=== PATIENT | male | born 1955 | race Caucasian/White ===

== ENCOUNTER → 2022-02-04 | Outpatient (CLI) | payer MEDICARE, SELFPAY ==
[2022-02-04 10:06] LABS: Absolute Lymphocyte Count 1.53 X10^3/uL (0.83-4.51); Absolute Neutrophil Count 3.5 X10^3/uL (2.0-7.7); Basophil# 0.02 X10^3/uL; Basophil% 0.4 % (0-1); Eosinophil# 0.17 X10^3/uL; Hematocrit 45.6 % (40-54); Hemoglobin 15.1 g/dL (13.0-16.5); Lymphocyte # 1.53 X10^3/ul (0.83-4.51); Lymphocyte % 27.4 % (19-41); Mean Corp Hgb Conc 33.1 g/dL (32-36); Mean Corpuscular Hgb 32.1 pg (27.0-32.0); Mean Corpuscular Volume 96.8 fL (80-94); Mean Platelet Vol. 9.9 fl (6.2-12.0); Monocyte# 0.38 X10^3/uL; Monocyte% 6.8 % (0-10); NRBC Flagged by Analyzer 0 % (0-5); Neutrophil # 3.46 X10^3/uL (2.7-7.7); Platelet Count 187 K/mm3 (150-450); RBC Distribution Width CV 12.9 % (11.6-14.6); RBC Distribution Width SD 46.4 fl (35.1-43.9); Red Blood Count 4.71 M/mm3 (4.6-6.2); White Blood Count 5.6 K/mm3 (4.4-11.0)
[2022-02-04 10:34] LABS: Vitamin D,25 Hydroxy 36.7 ng/mL
[2022-02-04 10:58] LABS: ALB/GLOB Ratio 1.3 RATIO (0.9-2.4); AST(SGOT) 20 U/L (15-37); Alanine Aminotransfer ALT/SGPT 41 U/L (16-61); Albumin, Serum 4.1 g/dL (3.2-5.0); Alkaline Phosphatase 63 U/L (45-117); Anion Gap 5 (5-15); BUN 20 mg/dL (7-18); BUN/Creat Ratio 21.5 RATIO (10-20); Calcium,Total 9.4 mg/dL (8.5-10.1); Chloride 104 mmol/L (98-107); Creatinine, Serum 0.93 mg/dL (0.70-1.30); EST Glomerular Filtration Rate 86 mL/min (>60); Est Glom Filt Rate - Afr Amer 104 mL/min (>60); Globulin 3.1 g/dL (2.2-4.2); Glucose 104 mg/dL (74-106); PSA,Total - Annual Screen 0.55 ng/mL (0.00-4.00); Potassium 4.2 mmol/L (3.5-5.1); Protein, Total 7.2 g/dL (6.4-8.2); Sodium Level 138 mmol/L (136-145); T4 Free Direct 0.82 ng/dL (0.76-1.46); Thyroid Stim Hormone (TSH) 2.47 uIU/mL (0.358-3.74)
[2022-02-05 10:15] LABS: Hemoglobin A1c 5.7 % (3.8-5.6)
[2022-02-19 17:24] LABS: Anti-Thyroglobulin AB 10.6 IU/mL (0.0-0.9); Thyroglobulin RIA < 2.0 ng/mL (.)
== END | disposition home or self-care (01) ==
LOC: MFPLAB 09:29
PROVIDERS: PCP Family Medicine; Referring Provider Family Medicine; Visit Provider Family Medicine
DX: E04.1 Nontoxic single thyroid nodule (principal); Z80.42 Family history of malignant neoplasm of prostate; E55.9 Vitamin D deficiency, unspecified; R73.09 Other abnormal glucose; Z12.5 Encounter for screening for malignant neoplasm of prostate
CPT/HCPCS: 36415; 80053; 82306; 83036; 84153; 84432; 84439; 84443; 85025; 86800; G0103

== ENCOUNTER → 2022-02-16 | Outpatient (CLI) | payer MEDICARE, SELFPAY ==
--- NOTE | 2022-02-16 11:45 | US_ITS ---
STUDY: THYROID ULTRASOUND REASON FOR EXAM: Male, 66 years old. NODULE TECHNIQUE: Ultrasound evaluation of the thyroid was performed with real-time and static resendez-scale imaging. COMPARISON: None. FINDINGS: RIGHT LOBE: The right lobe of the thyroid gland measures 3.7 x 1.5 cm. There is a homogeneous echotexture. There are no demonstrated solid, cystic or complex lesions. LEFT LOBE: The left lobe of the thyroid gland measures 3.6 x 1.7 cm. There is a homogeneous echotexture. There is a nodule. This measures 3 x 3 x 2 mm. The lesion is solid with regular margins and terrie nodular doppler flow. ISTHMUS: The isthmus measures 4 mm. US/Thyroid IMPRESSION: Left colloid cyst. This nodule is cystic or nearly completely cystic. This nodule is benign and no FNA or follow-up is necessary. Electronically Signed: Chandrakant Mccloud MD at 16:55 EST ,
== END | disposition home or self-care (01) ==
LOC: US 11:43
PROVIDERS: PCP Family Medicine; Visit Provider Family Medicine
DX: E04.1 Nontoxic single thyroid nodule (principal)
CPT/HCPCS: 76536

== ENCOUNTER → 2022-07-07 | Outpatient (CLI) | payer MEDICARE, SELFPAY ==
[2022-07-07 10:24] LABS: Hemoglobin A1c 5.7 % (3.8-5.6)
[2022-07-07 10:38] LABS: ALB/GLOB Ratio 1.1 RATIO (0.9-2.4); AST(SGOT) 26 U/L (15-37); Alanine Aminotransfer ALT/SGPT 45 U/L (16-61); Albumin, Serum 3.9 g/dL (3.2-5.0); Alkaline Phosphatase 76 U/L (45-117); Anion Gap 7 (5-15); BUN 19 mg/dL (7-18); BUN/Creat Ratio 20.5 RATIO (10-20); Calcium,Total 9.1 mg/dL (8.5-10.1); Chloride 104 mmol/L (98-107); Cholesterol 210 mg/dL (200); Creatinine, Serum 0.93 mg/dL (0.70-1.30); EST Glomerular Filtration Rate 87 mL/min (>60); Est Glom Filt Rate - Afr Amer 105 mL/min (>60); Globulin 3.5 g/dL (2.2-4.2); Glucose 98 mg/dL (74-106); High Density Lipoprotein 45 mg/dL; Potassium 4.3 mmol/L (3.5-5.1); Protein, Total 7.4 g/dL (6.4-8.2); Sodium Level 138 mmol/L (136-145); Triglycerides 115 mg/dL; Very Low Density Lipoprotein 23 mg/dL (5-40)
[2022-07-07 10:57] LABS: Vitamin D,25 Hydroxy 60.8 ng/mL
== END | disposition home or self-care (01) ==
PROVIDERS: PCP Family Medicine; Referring Provider Family Medicine; Visit Provider Family Medicine
DX: E55.9 Vitamin D deficiency, unspecified (principal); E78.5 Hyperlipidemia, unspecified; R73.02 Impaired glucose tolerance (oral)
CPT/HCPCS: 36415; 80053; 80061; 82306; 83036

== ENCOUNTER → 2022-10-29 | Outpatient (CLI) | payer MEDICARE, SELFPAY ==
[2022-10-29 12:03] LABS: Absolute Lymphocyte Count 1.29 X10^3/uL (0.83-4.51); Absolute Neutrophil Count 3.5 X10^3/uL (2.0-7.7); Basophil# 0.01 X10^3/uL; Basophil% 0.2 % (0-1); Eosinophil# 0.12 X10^3/uL; Eosinophils% 2.3 % (0-5); Hemoglobin 14.5 g/dL (13.0-16.5); Lymphocyte # 1.29 X10^3/ul (0.83-4.51); Lymphocyte % 24.8 % (19-41); Mean Corpuscular Hgb 31.9 pg (27.0-32.0); Mean Corpuscular Volume 96.7 fL (80-94); Mean Platelet Vol. 9.8 fl (6.2-12.0); Monocyte# 0.33 X10^3/uL; Monocyte% 6.3 % (0-10); NRBC Flagged by Analyzer 0 % (0-5); Neutrophil # 3.45 X10^3/uL (2.7-7.7); Neutrophil % 66.2 % (47-70); Platelet Count 194 K/mm3 (150-450); RBC Distribution Width SD 46.6 fl (35.1-43.9); Red Blood Count 4.55 M/mm3 (4.6-6.2); White Blood Count 5.2 K/mm3 (4.4-11.0)
[2022-10-29 12:31] LABS: ALB/GLOB Ratio 1.1 RATIO (0.9-2.4); AST(SGOT) 21 U/L (15-37); Alanine Aminotransfer ALT/SGPT 36 U/L (16-61); Albumin, Serum 3.9 g/dL (3.2-5.0); Alkaline Phosphatase 66 U/L (45-117); Anion Gap 5 (5-15); BUN 16 mg/dL (7-18); BUN/Creat Ratio 15.7 RATIO (10-20); Calcium,Total 9.4 mg/dL (8.5-10.1); Chloride 105 mmol/L (98-107); Cholesterol 137 mg/dL (200); Creatinine, Serum 1.02 mg/dL (0.70-1.30); EST Glomerular Filtration Rate 78 mL/min (>60); Est Glom Filt Rate - Afr Amer 94 mL/min (>60); Globulin 3.5 g/dL (2.2-4.2); Glucose 101 mg/dL (74-106); High Density Lipoprotein 51 mg/dL; Potassium 4.3 mmol/L (3.5-5.1); Protein, Total 7.4 g/dL (6.4-8.2); Sodium Level 138 mmol/L (136-145); Triglycerides 73 mg/dL; Very Low Density Lipoprotein 15 mg/dL (5-40)
[2022-10-29 12:40] LABS: Vitamin D,25 Hydroxy 54.7 ng/mL
== END | disposition home or self-care (01) ==
LOC: MTLAB 10:14
PROVIDERS: PCP Family Medicine; Referring Provider Family Medicine; Visit Provider Family Medicine
DX: E78.5 Hyperlipidemia, unspecified (principal); E55.9 Vitamin D deficiency, unspecified; R73.02 Impaired glucose tolerance (oral)
CPT/HCPCS: 36415; 80053; 80061; 82306; 83036; 85025

== ENCOUNTER → 2023-06-03 | Outpatient (CLI) | payer MEDICARE, SELFPAY ==
[2023-06-03 18:00] LABS: Absolute Lymphocyte Count 1.44 X10^3/uL (0.83-4.51); Absolute Neutrophil Count 3.5 X10^3/uL (2.0-7.7); Basophil# 0.01 X10^3/uL; Basophil% 0.2 % (0-1); Eosinophil# 0.09 X10^3/uL; Eosinophils% 1.6 % (0-5); Hematocrit 43.7 % (40-54); Hemoglobin 14.2 g/dL (13.0-16.5); Lymphocyte # 1.44 X10^3/ul (0.83-4.51); Lymphocyte % 26.3 % (19-41); Mean Corp Hgb Conc 32.5 g/dL (32-36); Mean Corpuscular Hgb 31.3 pg (27.0-32.0); Mean Corpuscular Volume 96.3 fL (80-94); Mean Platelet Vol. 10.5 fl (6.2-12.0); Monocyte# 0.46 X10^3/uL; Monocyte% 8.4 % (0-10); NRBC Flagged by Analyzer 0 % (0-5); Neutrophil # 3.46 X10^3/uL (2.7-7.7); Neutrophil % 63.3 % (47-70); Platelet Count 193 K/mm3 (150-450); RBC Distribution Width CV 12.7 % (11.6-14.6); RBC Distribution Width SD 45.3 fl (35.1-43.9); Red Blood Count 4.54 M/mm3 (4.6-6.2); White Blood Count 5.5 K/mm3 (4.4-11.0)
[2023-06-03 18:20] LABS: Vitamin D,25 Hydroxy 74.2 ng/mL
[2023-06-03 18:21] LABS: ALB/GLOB Ratio 1.1 RATIO (0.9-2.4); AST(SGOT) 21 U/L (15-37); Alanine Aminotransfer ALT/SGPT 34 U/L (16-61); Albumin, Serum 4.1 g/dL (3.2-5.0); Alkaline Phosphatase 66 U/L (45-117); Anion Gap 9 (5-15); BUN 16 mg/dL (7-18); BUN/Creat Ratio 17.5 RATIO (10-20); Calcium,Total 9.4 mg/dL (8.5-10.1); Chloride 103 mmol/L (98-107); Cholesterol 166 mg/dL (200); Creatinine, Serum 0.91 mg/dL (0.70-1.30); EST Glomerular Filtration Rate 88 mL/min (>60); Est Glom Filt Rate - Afr Amer 107 mL/min (>60); Globulin 3.6 g/dL (2.2-4.2); Glucose 100 mg/dL (74-106); High Density Lipoprotein 47 mg/dL; Potassium 3.9 mmol/L (3.5-5.1); Protein, Total 7.7 g/dL (6.4-8.2); Sodium Level 141 mmol/L (136-145); Triglycerides 93 mg/dL; Very Low Density Lipoprotein 19 mg/dL (5-40)
[2023-06-03 18:31] LABS: Hemoglobin A1c 5.6 % (3.8-5.6)
== END | disposition home or self-care (01) ==
LOC: MTLAB 15:34
PROVIDERS: PCP Family Medicine; Referring Provider Family Medicine; Visit Provider Family Medicine
DX: E55.9 Vitamin D deficiency, unspecified (principal); E78.5 Hyperlipidemia, unspecified; R73.02 Impaired glucose tolerance (oral)
CPT/HCPCS: 36415; 80053; 80061; 82306; 83036; 85025

== ENCOUNTER → 2023-07-07 | Outpatient (CLI) | payer MEDICARE, SELFPAY ==
--- NOTE | 2023-07-07 14:13 | US_ITS ---
STUDY: THYROID ULTRASOUND REASON FOR EXAM: Male, 68 years old. nodule TECHNIQUE: Ultrasound evaluation of the thyroid was performed with real-time and static resendez-scale imaging. COMPARISON: 02/16/2022 FINDINGS: RIGHT LOBE: The right lobe of the thyroid gland measures 3.4 x 1.5 x 1.6 cm. There is a homogeneous echotexture. There are no demonstrated solid, cystic or complex lesions. LEFT LOBE: The left lobe of the thyroid gland measures 3.7 x 1.5 x 1.2 cm. There is a homogeneous echotexture. No change in tiny 3 mm hypoechoic nodule consistent with a tiny adenoma or colloid cyst. ISTHMUS: The isthmus measures 5 mm thick. . The regional lymph nodes are normal. US/Thyroid IMPRESSION: No change in tiny adenoma or colloid cyst in the left lobe. Electronically Signed: Javier Rojas MD at 23:31 EDT ,
== END | disposition home or self-care (01) ==
LOC: US 14:09
PROVIDERS: PCP Family Medicine; Referring Provider Family Medicine; Visit Provider Family Medicine
DX: E04.1 Nontoxic single thyroid nodule (principal)
CPT/HCPCS: 76536

== ENCOUNTER → 2023-12-27 | Outpatient (CLI) | payer MEDICARE, SELFPAY ==
[2023-12-27 10:54] LABS: ALB/GLOB Ratio 1.1 RATIO (0.9-2.4); AST(SGOT) 18 U/L (15-37); Alanine Aminotransfer ALT/SGPT 34 U/L (16-61); Albumin, Serum 3.9 g/dL (3.2-5.0); Alkaline Phosphatase 74 U/L (45-117); Anion Gap 5 (5-15); BUN 16 mg/dL (7-18); BUN/Creat Ratio 16.4 RATIO (10-20); Calcium,Total 9.2 mg/dL (8.5-10.1); Chloride 105 mmol/L (98-107); Cholesterol 149 mg/dL (200); Creatinine, Serum 0.98 mg/dL (0.70-1.30); EST Glomerular Filtration Rate 81 mL/min (>60); Est Glom Filt Rate - Afr Amer 98 mL/min (>60); Globulin 3.5 g/dL (2.2-4.2); Glucose 97 mg/dL (74-106); High Density Lipoprotein 46 mg/dL; PSA,Total - Annual Screen 0.55 ng/mL (0.00-4.00); Potassium 4.4 mmol/L (3.5-5.1); Protein, Total 7.4 g/dL (6.4-8.2); Sodium Level 137 mmol/L (136-145); Triglycerides 88 mg/dL; Very Low Density Lipoprotein 18 mg/dL (5-40)
[2023-12-27 11:30] LABS: Hemoglobin A1c 5.8 % (3.8-5.6)
== END | disposition home or self-care (01) ==
LOC: MFPLAB 09:02
PROVIDERS: PCP Family Medicine; Visit Provider Family Medicine
DX: Z00.00 Encounter for general adult medical examination without abnormal findings (principal); E78.5 Hyperlipidemia, unspecified; R73.02 Impaired glucose tolerance (oral); Z12.5 Encounter for screening for malignant neoplasm of prostate
CPT/HCPCS: 36415; 80053; 80061; 83036; 84153; G0103

== ENCOUNTER → 2024-01-20 | Outpatient (CLI) | payer MEDICARE, SELFPAY ==
--- NOTE | 2024-01-20 16:24 | RAD_ITS ---
EXAM: XR RIGHT KNEE, 3 VIEWS CLINICAL INDICATION: pain TECHNIQUE: Three views of the right knee. COMPARISON: No relevant prior studies available. FINDINGS: BONES/JOINTS: Unremarkable. No acute fracture. No subluxation. Normal alignment. Preservation of the joint space. No sclerotic or destructive changes observed. SOFT TISSUES: Unremarkable. No soft tissue swelling or gas. No radiopaque foreign body. RAD/Knee 3 Views IMPRESSION: Negative right knee x-rays. Electronically Signed: Jeff Dickey MD at 17:55 EST ,
== END | disposition home or self-care (01) ==
LOC: MTRAD 16:07
PROVIDERS: PCP Family Medicine; Referring Provider Family Medicine; Visit Provider Family Medicine
DX: M25.561 Pain in right knee (principal)
CPT/HCPCS: 73562

== ENCOUNTER → 2024-02-28 | Outpatient (CLI) | payer MEDICARE, SELFPAY ==
--- NOTE | 2024-02-28 08:21 | RAD_ITS ---
STUDY: X-RAY - ESOPHAGUS (BARIUM SWALLOW) WITH FLUOROSCOPY REASON FOR EXAM: Male, 68 years old. 12 mm tablet TECHNIQUE: view(s) of the esophagus were obtained following swallowing of barium. FLUOROSCOPY TIME (if supplied): (27 seconds) minutes/seconds. 2.9 mGy COMPARISON: None. FINDINGS: There is no demonstrated esophageal foreign body. There is no demonstrated stricture or mucosal abnormality. Normal gastroesophageal junction, without a demonstrated hiatal hernia. The patient ingested a 12 mm tablet of barium without any difficulty. Normal visualized aortic arch and descending thoracic aorta. Normal visualized pulmonary parenchyma. Normal visualized osseous structures of the thorax. RAD/Esophagus Dual Contrast IMPRESSION: Normal plain film x-ray examination (barium swallow) of the esophagus. Electronically Signed: Paul Dawsno MD at 14:30 EST ,
== END | disposition home or self-care (01) ==
LOC: RAD 08:15
PROVIDERS: PCP Family Medicine; Referring Provider Family Medicine; Visit Provider Family Medicine
DX: R13.10 Dysphagia, unspecified (principal)

== ENCOUNTER → 2024-04-06 | Outpatient (CLI) | payer MEDICARE, SELFPAY ==
[2024-04-06 15:20] LABS: Bacteria 0 SEEN /hpf (None Seen); Mucous, Urine 0 SEEN /hpf (<or=2+); White Blood Cells 0 SEEN /hpf (0-5)
[2024-04-06 17:44] LABS: Color, Urine Yellow (Yellow); Glucose, Dipstick Normal (Normal); Ketone-Dipstick Negative (Negative); Leukocyte Esterase-Dipstick Negative /ul (Negative); Nitrite-Dipstick Negative (Negative); Occult Blood-Urine Negative /ul (Negative); Protein-Dipstick Negative (Negative); Urine Bilirubin Dipstick Negative (Negative); Urine Clarity Clear (Clear); Urine Urobilinogen Normal (Normal)
[2024-04-06 18:01] LABS: Red Blood Cells-Urine 5-10 SEEN /hpf (0-5)
[2024-04-06 18:02] LABS: Squamous Epithelial Cells - UA 0-5 SEEN /hpf (0-5)
[2024-04-06 18:24] LABS: ALB/GLOB Ratio 1.1 RATIO (0.9-2.4); AST(SGOT) 23 U/L (15-37); Alanine Aminotransfer ALT/SGPT 40 U/L (16-61); Alkaline Phosphatase 63 U/L (45-117); Anion Gap 5 (5-15); BUN 20 mg/dL (7-18); BUN/Creat Ratio 20.5 RATIO (10-20); Calcium,Total 9.5 mg/dL (8.5-10.1); Chloride 103 mmol/L (98-107); Creatinine, Serum 0.98 mg/dL (0.70-1.30); EST Glomerular Filtration Rate 81 mL/min (>60); Est Glom Filt Rate - Afr Amer 98 mL/min (>60); Globulin 3.6 g/dL (2.2-4.2); Glucose 93 mg/dL (74-106); Protein, Total 7.6 g/dL (6.4-8.2); Sodium Level 138 mmol/L (136-145)
== END | disposition home or self-care (01) ==
LOC: MFPLAB 15:13
PROVIDERS: PCP Family Medicine; Referring Provider Family Medicine; Visit Provider Family Medicine
DX: I10 Essential (primary) hypertension (principal)
CPT/HCPCS: 36415; 80053; 81001

== ENCOUNTER → 2024-10-09 | Outpatient (CLI) | payer MEDICARE, SELFPAY ==
--- NOTE | 2024-10-09 08:31 | RAD_ITS ---
EXAM: XR Bilateral Hips With Pelvis When Performed, 2 or 3 Views CLINICAL INDICATION: PAIN TECHNIQUE: Three or four views of the bilateral hips with pelvis when performed. COMPARISON: No relevant prior studies available. FINDINGS: BONES/JOINTS: Mild degenerative changes of the hip joints, bilaterally. No acute fracture. No dislocation. SOFT TISSUES: Unremarkable. RAD/Hips B/L min 2 views w/ Pelvis IMPRESSION: Degenerative changes as above. Reading Location: [id number]
[2024-10-09 08:38] LABS: Mucous, Urine 0 SEEN /hpf (<or=2+); Red Blood Cells-Urine 0 SEEN /hpf (0-5); Squamous Epithelial Cells - UA 0 SEEN /hpf (0-5)
--- OUTSIDE RECORDS SUMMARY | 2024-10-09 09:39 | XMS RPT_ITS | CCD ---
Author Organization [facility] CliniSymt Care Team Providers Care Replenishment Analyst Name Role Phone Unavailable Primary Care Provider UnavailDr. Price Cardoso Primary Care Provider [phone] Dr. Ghassan Win Attending Provider [phone] TIM PINEDA Attending Unavailable EDWIN, TIM Referring Unavailable EDWIN, TIM Attending Unavailable TIM PINEDA Referring Unavailable TIM PINEDA Attending Unavailable Price Benitez Primary Care Unavailable Price Benitez Attending Unavailable Price Benitez Referring Unavailable Price Benitez Primary Care Unavailable Price Benitez Attending Unavailable Price Benitez Attending Unavailable Price Benitez Referring Unavailable Price Benitez Primary Care Unavailable Price Benitez Attending Unavailable Price Benitez Referring Unavailable Price Benitez Primary Care Unavailable Price Benitez Primary Care Unavailable Price Benitez Attending Unavailable Price Benitez Referring Unavailable Price Benitez Primary Care Unavailable Price Benitez Attending Unavailable Price Benitez Referring Unavailable Problems Problem Classification Problem Date Documented Da te Episodic/Chronic Essential hypertension (1 source) Essential (primary) hypertension; Translations: [Essential (primary) hypertension] Onset: 04-17-2024 Chronic Nutritional deficiencies (1 source) Vitamin D deficiency, unspecified; Translations: [Vitamin D deficiency, unspecified] Onset: 06-11-2023 Chronic Other gastrointestinal disorders (1 source) Dysphagia, unspecified; Translations: [Dysphagia, unspecified] Onset: 03-21-2024 Episodic Other injuries and conditions due to external causes (4 sources) Injury of left rotator cuff; Translations: [Unspecified injury of muscle(s) and tendon(s) of the rotator cuff of left shoulder, subsequent encounter] Onset: 08-05-2022 Episodic Other non-traumatic joint disorders (1 source) Pain in right knee; Translations: [Pain in right knee] Onset: 02-21-2024 Episodic Thyroid disorders (1 source) Nontoxic single thyroid nodule; Translations: [Nontoxic single thyroid nodule] Onset: 07-15-2023 Chronic Results Test Name Value Interpretation Reference Range Facility Comprehensive Metabolic Prof carey 04-06-2024 Albumin [Mass/Vol] 4.0 g/dL Normal 3.2-5.0 [facility] Comment on above: Order Comment: Order Date: 04/06/24 Order Info: 0786-1 - CMP Performed By: #### L 500.4050 #### [facility] [address] [place], [address] Albumin/Globulin [Mass ratio] 1.1 {ratio} Normal 0.9-2.4 [facility] Comment on above: Order Comment: Order Date: 04/06/24 Order Info: 0786-1 - CMP Performed By: #### L 500.4050 #### [facility] [address] [place], [address] ALK P 63 U/L Normal 45-117 [facility] Comment on above: Order Comment: Order Date: 04/06/24 Order Info: 0786-1 - CMP Performed By: #### L 500.4050 #### [facility] [address] [place], [address] ALT [Catalytic activity/Vol] 40 U/L Normal 16-61 [facility] Comment on above: Order Comment: Order Date: 04/06/24 Order Info: 0786-1 - CMP Performed By: #### L 500.4050 #### [facility] [address] [place], [address] AST [Catalytic activity/Vol] 23 U/L Normal 15-37 [facility] Comment on above: Order Comment: Order Date: 04/06/24 Order Info: 0786-1 - CMP Performed By: #### L 500.4050 #### [facility] [address] [place], [address] Bilirubin [Mass/Vol] 0.50 mg/dL Normal 0.20-1.00 [facility] Comment on above: Order Comment: Order Date: 04/06/24 Order Info: 0786-1 - CMP Result Comment: For patients on eltrombopag therapy, use of Dimension Corbin TBIL is not recommended. Performed By: #### L 500.4050 #### [facility] [address] [place], [address] BUN/CRE 20.5 RATIO High 10-20 [facility] Comment on above: Order Comment: Order Date: 04/06/24 Order Info: 0786-1 - CMP Performed By: #### L 500.4050 #### [facility] [address] [place], [address] CA,Total 9.5 mg/dL Normal 8.5-10.1 [facility] Comment on above: Order Comment: Order Date: 04/06/24 Order Info: 0786-1 - CMP Performed By: #### L 500.4050 #### [facility] [address] [place], [address] Chloride [Moles/Vol] 103 mmol/L Normal 98-107 [facility] Comment on above: Order Comment: Order Date: 04/06/24 Order Info: 0786-1 - CMP Performed By: #### L 500.4050 #### [facility] [address] [place], [address] CO2 [Moles/Vol] 30.0 mmol/L Normal 21.0-32.0 [facility] Comment on above: Order Comment: Order Date: 04/06/24 Order Info: 0786-1 - CMP Performed By: #### L 500.4050 #### [facility] [address] [place], [address] Creatinine [Mass/Vol] 0.98 mg/dL Normal 0.70-1.30 [facility] Comment on above: Order Comment: Order Date: 04/06/24 Order Info: 0786-1 - CMP Result Comment: The validity of the calculated GFR GFRAA in patients over 70 years has not been determined. Clinical correlation is essential. Performed By: #### L 500.4050 #### [facility] [address] [place], [address] EST GFR - AA 98 mL/min Normal >60 [facility] Comment on above: Order Comment: Order Date: 04/06/24 Order Info: 0786-1 - CMP Result Comment: Afri can Latvian GFR Calc Performed By: #### L 500.4050 #### [facility] [address] [place], [address] GAP 5 Normal 5-15 [facility] Comment on above: Order Comment: Order Date: 04/06/24 Order Info: 0786-1 - CMP Performed By: #### L 500.4050 #### [facility] [address] [place], [address] GFR/1.73 sq M.predicted among non-blacks MDRD (S/P/Bld) [Vol rate/Area] 81 mL/min/{1.73_m2} Normal >60 [facility] Comment on above: Order Comment: Order Date: 04/06/24 Order Info: 0786-1 - CMP Result Comment: Non- GFR Calc Performed By: #### L 500.4050 #### [facility] [address] [place], [address] Globulin (S) [Mass/Vol] 3.6 g/dL Normal 2.2-4.2 [facility] Comment on above: Order Comment: Order Date: 04/06/24 Order Info: 0786-1 - CMP Performed By: #### L 500.4050 #### [facility] [address] [place], [address] Glucose [Mass/Vol] 93 mg/dL Normal 74-106 [facility] Comment on above: Order Comment: Order Date: 04/06/24 Order Info: 0786-1 - CMP Performed By: #### L 500.4050 #### [facility] [address] [place], [address] Potassium [Moles/Vol] 4.0 mmol/L Normal 3.5-5.1 [facility] Comment on above: Order Comment: Order Date: 04/06/24 Order Info: 0786-1 - CMP Performed By: #### L 500.4050 #### [facility] [address] [place], [address] Sodium [Moles/Vol] 138 mmol/L Normal 136-145 [facility] Comment on above: Order Comment: Order Date: 04/06/24 Order Info: 0786-1 - CMP Performed By: #### L 500.4050 #### [facility] [address] [place], [address] T PROT 7.6 g/dL Normal 6.4-8.2 [facility] Comment on above: Order Comment: Order Date: 04/06/24 Order Info: 0786-1 - CMP Performed By: #### L 500.4050 #### [facility] [address] [place], [address] Urea nitrogen [Mass/Vol] 20 mg/dL High 7-18 [facility] Comment on above: Order Comment: Order Date: 04/06/24 Order Info: 0786-1 - CMP Performed By: #### L 500.4050 #### [facility] [address] [place], [address] Urinalysis, Completeon 04-06 EPI,SQUAMOUS 0-5 SEEN Normal 0-5 [facility] Comment on above: Order Comment: Order Date: 12/26/23 Order Info: 0786-1 - CMP Order Info: [id number] - LIPID Order Info: [id number] - PSA Performed By: #### L 500.4050, L500.4100, L501.9985, L501.9910 #### [facility] [address] [place], [address] RBC 5-10 SEEN Normal 0-5 [facility] Comment on above: Order Comment: Order Date: 12/26/23 Order Info: 785-02 - CMP Order Info: - LIPID Order Info: [id number] - PSA Performed By: #### L 500.4050, L500.4100, L501.9985, L501.9910 #### [facility] [address] [place], [address] BACTERIA 0 SEEN Normal None Seen [facility] Comment on above: Order Comment: Order Date: 12/26/23 Order Info: 785-02 - CMP Order Info: - LIPID Order Info: [id number] - PSA Performed By: #### L 500.4050, L500.4100, L501.9985, L501.9910 #### [facility] [address] [place], [address] Mucus Ql (Urine sed) 0 SEEN Normal [facility] Comment on above: Order Comment: Order Date: 12/26/23 Order Info: 785-02 - CMP Order Info: - LIPID Order Info: [id number] - PSA Performed By: #### L 500.4050, L500.4100, L501.9985, L501.9910 #### [facility] [address] [place], [address] WBC 0 SEEN Normal 0-5 [facility] Comment on above: Order Comment: Order Date: 12/26/23 Order Info: 785-02 - CMP Order Info: - LIPID Order Info: [id number] - PSA Performed By: #### L 500.4050, L500.4100, L501.9985, L501.9910 #### [facility] [address] [place], [address] Esophagus Dual Contraston Esophagus Dual Contrast [facility] Imaging Services [address] [place], [place] [address] Esophagus Dual Contrast MR#: [id number] Acct: [id number] Name: HRASHAD SILVERMAN Rep #: [id number] : 1955 M 68 From: Paul maddox MD PCP: Dr. Price Benitez MD Status: REG CLI Study: Esophagus Dual Contrast Date of Exam: 02/28/24 Exam# [id number] Ordering Dr: Price Benitez MD [id number] STUDY: X-RAY - ESOPHAGUS (BARIUM SWALLOW) WITH FLUOROSCOPY REASON FOR EXAM: Male, 68 years old. 12 mm tablet TECHNIQUE: view(s) of the esophagus were obtained following swallowing of barium. FLUOROSCOPY TIME (if supplied): (27 seconds) minutes/seconds. 2.9 mGy COMPARISON: None. FINDINGS: There is no demonstrated esophageal foreign body. There is no demonstrated stricture or mucosal abnormality. Normal gastroesophageal junction, without a demonstrated hiatal hernia. The patient ingested a 12 mm tablet of barium without any difficulty. Normal visualized aortic arch and descending thoracic aorta. Normal visualized pulmonary parenchyma. Normal visualized osseous structures of the thorax. RAD/Esophagus Dual Contrast IMPRESSION: Normal plain film x-ray examination (barium swallow) of the esophagus. Electronically Signed: Paul Dawson MD at 14:30 EST , CC: Dr. Price Benitez MD Tub Tender: Signed Normal [facility] Knee 3 Viewson 01-20-2024 Knee 3 Views [facility] Imaging Services [address] [place], [place] [address] Knee 3 Views MR#: [id number] Acct: [id number] Name: HARSHAD SILVERMAN Rep #: [id number] : 1955 M 68 From: Jeff Dickey MD PCP: Dr. Price Bentiez MD Status: REG CLI Study: Knee 3 Views Date of Exam: 01/20/24 Exam# [id number] Ordering Dr: Price Benitez MD [id number] EXAM: XR RIGHT KNEE, 3 VIEWS CLINICAL INDICATION: pain TECHNIQUE: Three views of the right knee. COMPARISON: No relevant prior studies available. FINDINGS: BONES/JOINTS: Unremarkable. No acute fracture. No subluxation. Normal alignment. Preservation of the joint space. No sclerotic or destructive changes observed. SOFT TISSUES: Unremarkable. No soft tissue swelling or gas. No radiopaque foreign body. RAD/Knee 3 Views IMPRESSION: Negative right knee x-rays. Electronically Signed: Jeff Dickey MD at 17:55 EST , CC: Dr. Price Benitez MD Tub Tender: Signed Normal [facility] Comprehensive Metabolic Prof [facility] 12-27-2023 Albumin [Mass/Vol] 3.9 g/dL Normal 3.2-5.0 [facility] Comment on above: Order Comment: Order Date: 12/26/23 Order Info: [id number] - CMP Order Info: [id number] - LIPID Order Info: [id number] - PSA Performed By: #### L 500.4050, L500.4100, L501.9985, L501.9910 #### [facility] [address] [place], [place], [address] Albumin/Globulin [Mass ratio] 1.1 {ratio} Normal 0.9-2.4 [facility] Comment on above: Order Comment: Order Date: 12/26/23 Order Info: 86-1 - CMP Order Info: [id number] - LIPID Order Info: [id number] - PSA Performed By: #### L 500.4050, L500.4100, L501.9985, L501.9910 #### [facility] [address] [place], [address] ALK P 74 U/L Normal 45-117 [facility] Comment on above: Order Comment: Order Date: 12/26/23 Order Info: 86-1 - CMP Order Info: [id number] - LIPID Order Info: [id number]- - PSA Performed By: #### L 500.4050, L500.4100, L501.9985, L501.9910 #### [facility] [address] [place], [address] ALT [Catalytic activity/Vol] 34 U/L Normal 16-61 [facility] Comment on above: Order Comment: Order Date: 12/26/23 Order Info: [id number] - CMP Order Info: [id number] - LIPID Order Info: [id number] - PSA Performed By: #### L 500.4050, L500.4100, L501.9985, L501.9910 #### [facility] [address] [place], [address] AST [Catalytic activity/Vol] 18 U/L Normal 15-37 [facility] Comment on above: Order Comment: Order Date: 12/26/23 Order Info: [id number] - CMP Order Info: [id number] - LIPID Order Info: [id number] - PSA Performed By: #### L 500.4050, L500.4100, L501.9985, L501.9910 #### [facility] [address] [place], [address] Bilirubin [Mass/Vol] 0.60 mg/dL Normal 0.20-1.00 [facility] Comment on above: Order Comment: Order Date: 12/26/23 Order Info: 785-1 - CMP Order Info: - LIPID Order Info: [id number] - PSA Result Comment: For patients on eltrombopag therapy, use of Dimension Corbin TBIL is not recommended. Performed By: #### L 500.4050, L500.4100, L501.9985, L501.9910 #### [facility] [address] [place], [address] BUN/CRE 16.4 RATIO Normal 10-20 [facility] Comment on above: Order Comment: Order Date: 12/26/23 Order Info: 785- - CMP Order Info: - LIPID Order Info: 1 - PSA Performed By: #### L 500.4050, L500.4100, L501.9985, L501.9910 #### [facility] [address] [place], [address] CA,Total 9.2 mg/dL Normal 8.5-10.1 [facility] Comment on above: Order Comment: Order Date: 12/26/23 Order Info: [id number] - CMP Order Info: - LIPID Order Info: [id number] - PSA Performed By: #### L 500.4050, L500.4100, L501.9985, L501.9910 #### [facility] [address] [place], [address] Chloride [Moles/Vol] 105 mmol/L Normal 98-107 [facility] Comment on above: Order Comment: Order Date: 12/26/23 Order Info: 071 - CMP Order Info: [id number] - LIPID Order Info: [id number] - PSA Performed By: #### L 500.4050, L500.4100, L501.9985, L501.9910 #### [facility] [address] [place], [address] CO2 [Moles/Vol] 27.0 mmol/L Normal 21.0-32.0 [facility] Comment on above: Order Comment: Order Date: 12/26/23 Order Info: [id number] - CMP Order Info: - LIPID Order Info: [id number] - PSA Performed By: #### L 500.4050, L500.4100, L501.9985, L501.9910 #### [facility] [address] [place], [address] Creatinine [Mass/Vol] 0.98 mg/dL Normal 0.70-1.30 [facility] Comment on above: Order Comment: Order Date: 12/26/23 Order Info: [id number] - CMP Order Info: - LIPID Order Info: [id number] - PSA Result Comment: The validity of the calculated GFR GFRAA in patients over 70 years has not been determined. Clinical correlation is essential. Performed By: #### L 500.4050, L500.4100, L501.9985, L501.9910 #### [facility] [address] [place], [place], [address] EST GFR - AA 98 mL/min Normal >60 [facility] Comment on above: Order Comment: Order Date: 12/26/23 Order Info: [id number] - CMP Order Info: - LIPID Order Info: [id number] - PSA Result Comment: Afri can Latvian GFR Calc Performed By: #### L 500.4050, L500.4100, L501.9985, L501.9910 #### [facility] [address] [place], [address] GAP 5 Normal 5-15 [facility] Comment on above: Order Comment: Order Date: 12/26/23 Order Info: [id number] - CMP Order Info: - LIPID Order Info: [id number] - PSA Performed By: #### L 500.4050, L500.4100, L501.9985, L501.9910 #### [facility] [address] [place], [address] GFR/1.73 sq M.predicted among non-blacks MDRD (S/P/Bld) [Vol rate/Area] 81 mL/min/{1.73_m2} Normal >60 [facility] Comment on above: Order Comment: Order Date: 12/26/23 Order Info: [id number] - CMP Order Info: - LIPID Order Info: [id number] - PSA Result Comment: Non- GFR Calc Performed By: #### L 500.4050, L500.4100, L501.9985, L501.9910 #### [facility] [address] [place], [address] Globulin (S) [Mass/Vol] 3.5 g/dL Normal 2.2-4.2 [facility] Comment on above: Order Comment: Order Date: 12/26/23 Order Info: [id number] - CMP Order Info: - LIPID Order Info: [id number] - PSA Performed By: #### L 500.4050, L500.4100, L501.9985, L501.9910 #### [facility] [address] [place], [address] Glucose [Mass/Vol] 97 mg/dL Normal 74-106 [facility] Comment on above: Order Comment: Order Date: 12/26/23 Order Info: [id number] - CMP Order Info: - LIPID Order Info: [id number] - PSA Performed By: #### L 500.4050, L500.4100, L501.9985, L501.9910 #### [facility] [address] [place], [address] Potassium [Moles/Vol] 4.4 mmol/L Normal 3.5-5.1 [facility] Comment on above: Order Comment: Order Date: 12/26/23 Order Info: [id number] - CMP Order Info: - LIPID Order Info: [id number] - PSA Performed By: #### L 500.4050, L500.4100, L501.9985, L501.9910 #### [facility] [address] [place], [address] Sodium [Moles/Vol] 137 mmol/L Normal 136-145 [facility] Comment on above: Order Comment: Order Date: 12/26/23 Order Info: [id number] - CMP Order Info: [id number] - LIPID Order Info: [id number] - PSA Performed By: #### L 500.4050, L500.4100, L501.9985, L501.9910 #### [facility] [address] [place], [place], [address] T PROT 7.4 g/dL Normal 6.4-8.2 [facility] Comment on above: Order Comment: Order Date: 12/26/23 Order Info: [id number] - CMP Order Info: [id number] - LIPID Order Info: [id number] - PSA Performed By: #### L 500.4050, L500.4100, L501.9985, L501.9910 #### [facility] [address] [place], [address] Urea nitrogen [Mass/Vol] 16 mg/dL Normal 7-18 [facility] Comment on above: Order Comment: Order Date: 12/26/23 Order Info: [id number] - CMP Order Info: [id number] - LIPID Order Info: [id number] - PSA Performed By: #### L 500.4050, L500.4100, L501.9985, L501.9910 #### [facility] [address] [place], [place], [address] Hemoglobin A1con 12-27-2023 HbA1c (Bld) [Mass fraction] 5.8 % High 3.8-5.6 [facility] Comment on above: Order Comment: Order Date: 12/26/23 Order Info: [id number] - A1C Result Comment: Norm al < 5.7 % Prediabetic 5.7 - 6.4 % Diabetic >or= 6.5 % Please note range changes. Performed By: #### L 500.4050, L500.4100, L501.9985, L501.9910 #### [facility] [address] [place], [address] Lipid Profileon 12-27-2023 Cholesterol [Mass/Vol] 149 mg/dL Normal 200 [facility] Comment on above: Order Comment: Order Date: 12/26/23 Order Info: 785- - CMP Order Info: - LIPID Order Info: [id number] - PSA Result Comment: <200 mg/dL Desirable 200-240 mg/dL Borderline >240 mg/dL High Risk Performed By: #### L 500.4050, L500.4100, L501.9985, L501.9910 #### [facility] [address] [place], [address] Cholesterol in HDL [Mass/Vol] 46 mg/dL Normal [facility] Comment on above: Order Comment: Order Date: 12/26/23 Order Info: [id number] - CMP Order Info: - LIPID Order Info: [id number] - PSA Result Comment: The drugs N-Acetylcysteine and Metamizole may falsely depress this assay. Reference Range HDL <40 mg/dL Low HDL Cholesterol HDL >or= 60 mg/dL High HDL Cholesterol Performed By: #### L 500.4050, L500.4100, L501.9985, L501.9910 #### [facility] [address] [place], [address] Cholesterol in LDL [Mass/Vol] 85 mg/dL Normal 0-130 [facility] Comment on above: Order Comment: Order Date: 12/26/23 Order Info: 07 - CMP Order Info: [id number] - LIPID Order Info: [id number] - PSA Performed By: #### L 500.4050, L500.4100, L501.9985, L501.9910 #### [facility] [address] [place], [address] Cholesterol in VLDL [Mass/Vol] 18 mg/dL Normal 5-40 [facility] Comment on above: Order Comment: Order Date: 12/26/23 Order Info: 0786- - CMP Order Info: [id number] - LIPID Order Info: [id number] - PSA Performed By: #### L 500.4050, L500.4100, L501.9985, L501.9910 #### [facility] [address] [place], [address] Triglyceride [Mass/Vol] 88 mg/dL Normal [facility] Comment on above: Order Comment: Order Date: 12/26/23 Order Info: 0786 - CMP Order Info: [id number] - LIPID Order Info: [id number] - PSA Result Comment: The drugs N-Acetylcysteine and Metamizole may falsely depress this assay. Serum Triglycerides Reference Interval Normal <150 mg/dL Borderline high 150 - 199 mg/dL High 200 - 499 mg/dL Very High > or = 500 mg/dL Performed By: #### L 500.4050, L500.4100, L501.9985, L501.9910 #### [facility] [address] [place], [address] PSA,Total - Annual Screenon 12-27-2023 PSA,TOT SCREEN 0.55 ng/mL Normal 0.00-4.00 [facility] Comment on above: Order Comment: Order Date: 12/26/23 Order Info: [id number]- - CMP Order Info: [id number] - LIPID Order Info: [id number] - PSA Result Comment: This test was performed using the TPSA assay method for the virocyt chemistry system. Values obtained with different assay methods cannot be used interchangably. When changing PSA assays in the course of monitoring a patient, additional sequential testing should be carried out to confirm baseline values. Performed By: #### L 500.4050, L500.4100, L501.9985, L501.9910 #### [facility] [address] [place], [address] Thyroidon 07-07-2023 Thyroid [facility] Imaging Services [address] [place], [place] [id number] Thyroid MR#: [id number] Acct: [id number] Name: HARSHAD SILVERMAN Rep #: [id number] : 1955 M 68 From: Javier Rojas MD PCP: Dr. Price Benitez MD Status: REG CLI Study: Thyroid Date of Exam: 07/07/23 Exam# [id number] Ordering Dr: Price Benitez MD [id number] STUDY: THYROID ULTRASOUND REASON FOR EXAM: Male, 68 years old. nodule TECHNIQUE: Ultrasound evaluation of the thyroid was performed with real-time and static resendez-scale imaging. COMPARISON: 02/16/2022 FINDINGS: RIGHT LOBE: The right lobe of the thyroid gland measures 3.4 x 1.5 x 1.6 cm. There is a homogeneous echotexture. There are no demonstrated solid, cystic or complex lesions. LEFT LOBE: The left lobe of the thyroid gland measures 3.7 x 1.5 x 1.2 cm. There is a homogeneous echotexture. No change in tiny 3 mm hypoechoic nodule consistent with a tiny adenoma or colloid cyst. ISTHMUS: The isthmus measures 5 mm thick. . The regional lymph nodes are normal. US/Thyroid IMPRESSION: No change in tiny adenoma or colloid cyst in the left lobe. Electronically Signed: Javier Rojas MD at 23:31 EDT , CC: Dr. Price Benitez MD Tub Tender: Signed Normal [facility] Absolute lymphocyte countOrd ered By: Price Benitez on 06-03-2023 Lymphocytes Auto (Unsp spec) [#/Vol] 1.44 10*3/uL 0.83-4.51 [facility] Automated blood erythrocyte count (number/volume)Ordered By: Price Benitez on 06-03-2023 RBC (Bld) [#/Vol] 4.54 10*6/uL Low 4.6-6.2 [facility] Comment on above: Order Comment: Order Date: 06/03/23 Order Info: [id number] - CBCD Performed By: #### L 500.4100, L500.4050, L506.1000, L100.0100, L501.9985 #### [facility] [address] [place], [place], [id number] Automated blood hematocrit ( percentage)Ordered By: Price Benitez on 06-03-2023 Hematocrit (Bld) [Volume fraction] 43.7 % Normal 40-54 [facility] Comment on above: Order Comment: Order Date: 06/03/23 Order Info: [id number] - CBCD Performed By: #### L 500.4100, L500.4050, L506.1000, L100.0100, L501.9985 #### [facility] [address] [place], [place], [id number] Automated lymphocyte count a s percentage of total leukocytesOrdered By: Price Benitez on 06-03-2023 Lymphocytes/100 WBC Auto (Unsp spec) 26.3 % 19-41 [facility] Basophil percentageOrdered B y: Price Benitez on 06-03-2023 Basophils/100 WBC (Bld) 0.2 % Normal 0-1 [facility] Comment on above: Order Comment: Order Date: 06/03/23 Order Info: [id number] - CBCD Performed By: #### L 500.4100, L500.4050, L506.1000, L100.0100, L501.9985 #### [facility] [address] [place], [address] Bilirubin [Mass/Vol] 0.50 mg/dL 0.20-1.00 [facility] Comment on above: For patients on eltr ombopag therapy, use of Dimension [place] TBIL is not recommended. Chloride [Moles/Vol] 103 mmol/L 98-107 [facility] Cholesterol [Mass/Vol] 166 mg/dL <200 [facility] Comment on above: <200 mg/dL Desirable 200-240 mg/dL Borderline >240 mg/dL High Risk Eosinophils/100 WBC (Bld) 1.6 % Normal 0-5 [facility] Comment on above: Order Comment: Order Date: 06/03/23 Order Info: [id number] - CBCD Performed By: #### L 500.4100, L500.4050, L506.1000, L100.0100, L501.9985 #### [facility] [address] [place], [address] Glucose [Mass/Vol] 100 mg/dL 74-106 [facility] Comment on above: Fasting Glucose resu lt from 100 to 125 mg/dL suggests IMPAIRED HOMEOSTASIS per A.D.A. criteria. Hemoglobin (Bld) [Mass/Vol] 14.2 g/dL Normal 13.0-16.5 [facility] Comment on above: Order Comment: Order Date: 06/03/23 Order Info: [id number] - CBCD Performed By: #### L 500.4100, L500.4050, L506.1000, L100.0100, L501.9985 #### [facility] [address] [place], [address] Monocytes/100 WBC (Bld) 8.4 % Normal 0-10 [facility] Comment on above: Order Comment: Order Date: 06/03/23 Order Info: [id number] - CBCD Performed By: #### L 500.4100, L500.4050, L506.1000, L100.0100, L501.9985 #### [facility] [address] [place], [address] Neutrophils (Bld) [#/Vol] 3.5 10*3/uL 2.0-7.7 [facility] Neutrophils/100 WBC (Bld) 63.3 % Normal 47-70 [facility] Comment on above: Order Comment: Order Date: 06/03/23 Order Info: [id number]- - CBCD Performed By: #### L 500.4100, L500.4050, L506.1000, L100.0100, L501.9985 #### [facility] [address] [place], [address] Potassium [Moles/Vol] 3.9 mmol/L 3.5-5.1 [facility] Protein [Mass/Vol] 7.7 g/dL 6.4-8.2 [facility] Sodium [Moles/Vol] 141 mmol/L 136-145 [facility] Triglyceride [Mass/Vol] 93 mg/dL <199 [facility] Comment on above: The drugs N-Acetylcy steine and Metamizole may falsely depress this assay.Serum Triglycerides Reference Interval Normal <150 mg/dL Borderline high 150 - 199 mg/dL High 200 - 499 mg/dL Very High > or = 500 mg/dL WBC (Bld) [#/Vol] 5.5 10*3/uL Normal 4.4-11.0 [facility] Comment on above: Order Comment: Order Date: 06/03/23 Order Info: [id number] - CBCD Performed By: #### L 500.4100, L500.4050, L506.1000, L100.0100, L501.9985 #### [facility] [address] [place], [place], [id number] CBC W/Diff, Automatedon 05-15 Absolute Lymph 1.44 X10 3/uL Normal 0.83-4.51 [facility] Comment on above: Order Comment: Order Date: 06/03/23 Order Info: [id number] - CBCD Performed By: #### L 500.4100, L500.4050, L506.1000, L100.0100, L501.9985 #### [facility] [address] [place], [address] Absolute Neut 3.5 X10 3/uL Normal 2.0-7.7 [facility] Comment on above: Order Comment: Order Date: 06/03/23 Order Info: [id number] - CBCD Performed By: #### L 500.4100, L500.4050, L506.1000, L100.0100, L501.9985 #### [facility] [address] [place], [address] IG% 0.200 Normal 0.0-0.9 [facility] Comment on above: Order Comment: Order Date: 06/03/23 Order Info: [id number] - CBCD Result Comment: IG% - Immature Granulocytes (promyelocytes, myelocytes and metamyelocytes) > 1% indicates that a LEFT SHIFT is Present. Performed By: #### L 500.4100, L500.4050, L506.1000, L100.0100, L501.9985 #### [facility] [address] [place], [address] Lymphocytes/100 WBC (Bld) 26.3 % Normal 19-41 [facility] Comment on above: Order Comment: Order Date: 06/03/23 Order Info: [id number] - CBCD Performed By: #### L 500.4100, L500.4050, L506.1000, L100.0100, L501.9985 #### [facility] [address] [place], [address] Nucleated RBC (Bld) [#/Vol] 0 10*3/uL Normal 0-5 [facility] Comment on above: Order Comment: Order Date: 06/03/23 Order Info: [id number]- - CBCD Performed By: #### L 500.4100, L500.4050, L506.1000, L100.0100, L501.9985 #### [facility] [address] [place], [address] RDW SD 45.3 fl High 35.1-43.9 [facility] Comment on above: Order Comment: Order Date: 06/03/23 Order Info: [id number] - CBCD Performed By: #### L 500.4100, L500.4050, L506.1000, L100.0100, L501.9985 #### [facility] [address] [place], [address] CBC W/Diff, AutomatedOrdered By: Price Benitez on 06-03-2023 MCH (RBC) [Entitic mass] 31.3 pg Normal 27.0-32.0 [facility] Comment on above: Order Comment: Order Date: 06/03/23 Order Info: [id number] - CBCD Performed By: #### L 500.4100, L500.4050, L506.1000, L100.0100, L501.9985 #### [facility] [address] [place], [address] MCHC (RBC) [Mass/Vol] 32.5 g/dL Normal 32-36 [facility] Comment on above: Order Comment: Order Date: 06/03/23 Order Info: [id number] - CBCD Performed By: #### L 500.4100, L500.4050, L506.1000, L100.0100, L501.9985 #### [facility] [address] [place], [address] Platelet mean volume (Bld) [Entitic vol] 10.5 fL Normal 6.2-12.0 [facility] Comment on above: Order Comment: Order Date: 06/03/23 Order Info: [id number] - CBCD Performed By: #### L 500.4100, L500.4050, L506.1000, L100.0100, L501.9985 #### [facility] [address] [place], [address] Platelets (Bld) [#/Vol] 193 10*3/uL Normal 150-450 [facility] Comment on above: Order Comment: Order Date: 06/03/23 Order Info: [id number] - CBCD Performed By: #### L 500.4100, L500.4050, L506.1000, L100.0100, L501.9985 #### [facility] [address] [place], [address] Comprehensive Metabolic Prof ilon 06-03-2023 Albumin [Mass/Vol] 4.1 g/dL Normal 3.2-5.0 [facility] Comment on above: Order Comment: Order Date: 06/03/23 Order Info: [id number] - CMP Order Info: [id number] - LIPID Performed By: #### L 500.4100, L500.4050, L506.1000, L100.0100, L501.9985 #### [facility] [address] [place], [address] Albumin/Globulin [Mass ratio] 1.1 {ratio} Normal 0.9-2.4 [facility] Comment on above: Order Comment: Order Date: 06/03/23 Order Info: [id number] - CMP Order Info: [id number] - LIPID Performed By: #### L 500.4100, L500.4050, L506.1000, L100.0100, L501.9985 #### [facility] [address] [place], [address] ALK P 66 U/L Normal 45-117 [facility] Comment on above: Order Comment: Order Date: 06/03/23 Order Info: [id number] - CMP Order Info: [id number] - LIPID Performed By: #### L 500.4100, L500.4050, L506.1000, L100.0100, L501.9985 #### [facility] [address] [place], [address] ALT [Catalytic activity/Vol] 34 U/L Normal 16-61 [facility] Comment on above: Order Comment: Order Date: 06/03/23 Order Info: [id number] - CMP Order Info: [id number] - LIPID Performed By: #### L 500.4100, L500.4050, L506.1000, L100.0100, L501.9985 #### [facility] [address] [place], [address] AST [Catalytic activity/Vol] 21 U/L Normal 15-37 [facility] Comment on above: Order Comment: Order Date: 06/03/23 Order Info: [id number] - CMP Order Info: [id number] - LIPID Performed By: #### L 500.4100, L500.4050, L506.1000, L100.0100, L501.9985 #### [facility] [address] [place], [address] Bilirubin [Mass/Vol] 0.50 mg/dL Normal 0.20-1.00 [facility] Comment on above: Order Comment: Order Date: 06/03/23 Order Info: [id number] - CMP Order Info: [id number] - LIPID Result Comment: For patients on eltrombopag therapy, use of Dimension [place] TBIL is not recommended. Performed By: #### L 500.4100, L500.4050, L506.1000, L100.0100, L501.9985 #### [facility] [address] [place], [address] BUN/CRE 17.5 RATIO Normal 10-20 [facility] Comment on above: Order Comment: Order Date: 06/03/23 Order Info: [id number] - CMP Order Info: [id number] - LIPID Performed By: #### L 500.4100, L500.4050, L506.1000, L100.0100, L501.9985 #### [facility] [address] [place], [address] CA,Total 9.4 mg/dL Normal 8.5-10.1 [facility] Comment on above: Order Comment: Order Date: 06/03/23 Order Info: [id number] - CMP Order Info: [id number] - LIPID Performed By: #### L 500.4100, L500.4050, L506.1000, L100.0100, L501.9985 #### [facility] [address] [place], [address] Chloride [Moles/Vol] 103 mmol/L Normal 98-107 [facility] Comment on above: Order Comment: Order Date: 06/03/23 Order Info: [id number] - CMP Order Info: [id number] - LIPID Performed By: #### L 500.4100, L500.4050, L506.1000, L100.0100, L501.9985 #### [facility] [address] [place], [address] CO2 [Moles/Vol] 29.0 mmol/L Normal 21.0-32.0 [facility] Comment on above: Order Comment: Order Date: 06/03/23 Order Info: [id number] - CMP Order Info: [id number] - LIPID Performed By: #### L 500.4100, L500.4050, L506.1000, L100.0100, L501.9985 #### [facility] [address] [place], [address] Creatinine [Mass/Vol] 0.91 mg/dL Normal 0.70-1.30 [facility] Comment on above: Order Comment: Order Date: 06/03/23 Order Info: [id number] - CMP Order Info: [id number] - LIPID Result Comment: The validity of the calculated GFR GFRAA in patients over 70 years has not been determined. Clinical correlation is essential. Performed By: #### L 500.4100, L500.4050, L506.1000, L100.0100, L501.9985 #### [facility] [address] [place], [address] EST GFR - AA 107 mL/min Normal >60 [facility] Comment on above: Order Comment: Order Date: 06/03/23 Order Info: [id number]- - CMP Order Info: [id number] - LIPID Result Comment: Afri can Latvian GFR Calc Performed By: #### L 500.4100, L500.4050, L506.1000, L100.0100, L501.9985 #### [facility] [address] [place], [address] GAP 9 Normal 5-15 [facility] Comment on above: Order Comment: Order Date: 06/03/23 Order Info: [id number]- - CMP Order Info: [id number] - LIPID Performed By: #### L 500.4100, L500.4050, L506.1000, L100.0100, L501.9985 #### [facility] [address] [place], [address] GFR/1.73 sq M.predicted among non-blacks MDRD (S/P/Bld) [Vol rate/Area] 88 mL/min/{1.73_m2} Normal >60 [facility] Comment on above: Order Comment: Order Date: 06/03/23 Order Info: [id number]- - CMP Order Info: [id number] - LIPID Result Comment: Non- GFR Calc Performed By: #### L 500.4100, L500.4050, L506.1000, L100.0100, L501.9985 #### [facility] [address] [place], [address] Globulin (S) [Mass/Vol] 3.6 g/dL Normal 2.2-4.2 [facility] Comment on above: Order Comment: Order Date: 06/03/23 Order Info: 0786- - CMP Order Info: [id number] - LIPID Performed By: #### L 500.4100, L500.4050, L506.1000, L100.0100, L501.9985 #### [facility] [address] [place], [address] Glucose [Mass/Vol] 100 mg/dL Normal 74-106 [facility] Comment on above: Order Comment: Order Date: 06/03/23 Order Info: [id number] - CMP Order Info: [id number] - LIPID Result Comment: Fast ing Glucose result from 100 to 125 mg/dL suggests IMPAIRED HOMEOSTASIS per A.D.A. criteria. Performed By: #### L 500.4100, L500.4050, L506.1000, L100.0100, L501.9985 #### [facility] [address] [place], [address] Potassium [Moles/Vol] 3.9 mmol/L Normal 3.5-5.1 [facility] Comment on above: Order Comment: Order Date: 06/03/23 Order Info: [id number] - CMP Order Info: [id number] - LIPID Performed By: #### L 500.4100, L500.4050, L506.1000, L100.0100, L501.9985 #### [facility] [address] [place], [address] Sodium [Moles/Vol] 141 mmol/L Normal 136-145 [facility] Comment on above: Order Comment: Order Date: 06/03/23 Order Info: [id number] - CMP Order Info: [id number] - LIPID Performed By: #### L 500.4100, L500.4050, L506.1000, L100.0100, L501.9985 #### [facility] [address] [place], [address] T PROT 7.7 g/dL Normal 6.4-8.2 [facility] Comment on above: Order Comment: Order Date: 06/03/23 Order Info: [id number] - CMP Order Info: [id number] - LIPID Performed By: #### L 500.4100, L500.4050, L506.1000, L100.0100, L501.9985 #### [facility] [address] [place], [address] Urea nitrogen [Mass/Vol] 16 mg/dL Normal 7-18 [facility] Comment on above: Order Comment: Order Date: 06/03/23 Order Info: [id number] - CMP Order Info: [id number] - LIPID Performed By: #### L 500.4100, L500.4050, L506.1000, L100.0100, L501.9985 #### [facility] [address] [place], [place], [id number] Determination of erythrocyte mean corpuscular volume (MCV)Ordered By: Price Benitez on 06-03-2023 MCV (RBC) [Entitic vol] 96.3 fL High 80-94 [facility] Comment on above: Order Comment: Order Date: 06/03/23 Order Info: [id number] - CBCD Performed By: #### L 500.4100, L500.4050, L506.1000, L100.0100, L501.9985 #### [facility] [address] [place], [address] Erythrocyte distribution wid th ratioOrdered By: Price Benitez on 06-03-2023 Erythrocyte distribution width (RBC) [Ratio] 12.7 % Normal 11.6-14.6 [facility] Comment on above: Order Comment: Order Date: 06/03/23 Order Info: [id number] - CBCD Performed By: #### L 500.4100, L500.4050, L506.1000, L100.0100, L501.9985 #### [facility] [address] [place], [place], [id number] Erythrocyte distribution wid th standard deviationOrdered By: Price Benitez on 06-03-2023 Erythrocyte distribution width (RBC) [Entitic vol] 45.3 fL 35.1-43.9 [facility] Hemoglobin A1con 06-03-2023 HbA1c (Bld) [Mass fraction] 5.6 % Normal 3.8-5.6 [facility] Comment on above: Order Comment: Order Date: 06/03/23 Order Info: [id number] - A1C Result Comment: Norm al < 5.7 % Prediabetic 5.7 - 6.4 % Diabetic >or= 6.5 % Please note range changes. Performed By: #### L 500.4100, L500.4050, L506.1000, L100.0100, L501.9985 #### [facility] [address] [place], [address] Immature granulocytes/100 WB C Auto (Bld)Ordered By: Price Benitez on 06-03-2023 Immature granulocytes/100 WBC (Bld) 0.200 % 0.0-0.9 [facility] Comment on above: IG% - Immature Granu locytes (promyelocytes, myelocytes and metamyelocytes) > 1% indicates that a LEFT SHIFT is Present. Laboratory - Chemistry and C hemistry - challengeOrdered By: Price Benitez on 06-03-2023 Albumin/Globulin [Mass ratio] 1.1 {ratio} 0.9-2.4 [facility] ALP [Catalytic activity/Vol] 66 U/L 45-117 [facility] ALT [Catalytic activity/Vol] 34 U/L 16-61 [facility] Cholesterol in HDL [Mass/Vol] 47 mg/dL >40 [facility] Comment on above: The drugs N-Acetylcy steine and Metamizole may falsely depress this assay. Reference Range HDL <40 mg/dL Low HDL Cholesterol HDL >or= 60 mg/dL High HDL Cholesterol Cholesterol in LDL [Mass/Vol] 100 mg/dL 0-130 [facility] CO2 [Moles/Vol] 29.0 mmol/L 21.0-32.0 [facility] Globulin (S) [Mass/Vol] 3.6 g/dL 2.2-4.2 [facility] Urea nitrogen/Creatinine [Mass ratio] 17.5 mg/mg 10-20 [facility] - Hematology and Cell countsOrdered By: Price Benitez on 06-03-2023 Nucleated RBC/100 WBC (Bld) [Ratio] 0 % 0-5 [facility] Lipid Profileon 06-03-2023 Cholesterol [Mass/Vol] 166 mg/dL Normal 200 [facility] Comment on above: Order Comment: Order Date: 06/03/23 Order Info: [id number] - CMP Order Info: [id number] - LIPID Result Comment: <200 mg/dL Desirable 200-240 mg/dL Borderline >240 mg/dL High Risk Performed By: #### L 500.4100, L500.4050, L506.1000, L100.0100, L501.9985 #### [facility] [address] [place], [address] Cholesterol in HDL [Mass/Vol] 47 mg/dL Normal [facility] Comment on above: Order Comment: Order Date: 06/03/23 Order Info: [id number]- - CMP Order Info: [id number] - LIPID Result Comment: The drugs N-Acetylcysteine and Metamizole may falsely depress this assay. Reference Range HDL <40 mg/dL Low HDL Cholesterol HDL >or= 60 mg/dL High HDL Cholesterol Performed By: #### L 500.4100, L500.4050, L506.1000, L100.0100, L501.9985 #### [facility] [address] [place], [address] Cholesterol in LDL [Mass/Vol] 100 mg/dL Normal 0-130 [facility] Comment on above: Order Comment: Order Date: 06/03/23 Order Info: [id number] - CMP Order Info: [id number] - LIPID Performed By: #### L 500.4100, L500.4050, L506.1000, L100.0100, L501.9985 #### [facility] [address] [place], [address] Cholesterol in VLDL [Mass/Vol] 19 mg/dL Normal 5-40 [facility] Comment on above: Order Comment: Order Date: 06/03/23 Order Info: [id number] - CMP Order Info: [id number] - LIPID Performed By: #### L 500.4100, L500.4050, L506.1000, L100.0100, L501.9985 #### [facility] [address] [place], [address] Triglyceride [Mass/Vol] 93 mg/dL Normal [facility] Comment on above: Order Comment: Order Date: 06/03/23 Order Info: [id number] - CMP Order Info: [id number] - LIPID Result Comment: The drugs N-Acetylcysteine and Metamizole may falsely depress this assay. Serum Triglycerides Reference Interval Normal <150 mg/dL Borderline high 150 - 199 mg/dL High 200 - 499 mg/dL Very High > or = 500 mg/dL Performed By: #### L 500.4100, L500.4050, L506.1000, L100.0100, L501.9985 #### [facility] [address] [place], [address] No Panel InformationOrdered By: Price Benitez on 06-03-2023 Estimated GFR (MDRD) Amer 107 mL/min >60 [facility] Comment on above: GFR Calc Estimated GFR (MDRD) Non-Af Amer 88 mL/min >60 [facility] Comment on above: Non- GFR Calc Vitamin D 25-Hydroxy 74.2 ng/mL [facility] Comment on above: Vitamin D 25(OH) Sta tus Range Deficiency <20 ng/mL (50nmol/L) Insufficiency 20 - 30 ng/mL (50 - 75 nmol/L) Sufficiency 30 - 100 ng/mL (75 - 250 nmol/L) Toxicity >100 ng/mL (>250 nmol/L) VLDL Cholesterol 19 mg/dL 5-40 [facility] Serum or plasma calcium isabel urement (mass/volume)Ordered By: Price Benitez on 06-03-2023 Calcium [Mass/Vol] 9.4 mg/dL 8.5-10.1 [facility] Serum or plasma creatinine m easurement (mass/volume)Ordered By: Price Benitez on 06-03-2023 Creatinine [Mass/Vol] 0.91 mg/dL 0.70-1.30 [facility] Comment on above: The validity of the calculated GFR & GFRAA in patients over 70 years has not been determined. Clinical correlation is essential. Serum or plasma urea nitroge n measurement (mass/volume)Ordered By: Price Benitez on 06-03-2023 Urea nitrogen [Mass/Vol] 16 mg/dL 7-18 [facility] Thin prep Papanicolaou smear with manual screeningOrdered By: Price Benitez on 06-03-2023 Thin prep Papanicolaou smear with manual screening 4.1 g/dL 3.2-5.0 [facility] Thin prep Papanicolaou smear with manual screening 21 U/L 15-37 [facility] Thin prep Papanicolaou smear with manual screening 9 5-15 [facility] Vitamin D,25 Hydroxyon 06-02 Vitamin D 25-OH 74.2 ng/mL Normal [facility] Comment on above: Order Comment: Order Date: 06/03/23 Order Info: [id number] - [id number] Result Comment: Sofia min D 25(OH) Status Range Deficiency <20 ng/mL (50nmol/L) Insufficiency 20 - 30 ng/mL (50 - 75 nmol/L) Sufficiency 30 - 100 ng/mL (75 - 250 nmol/L) Toxicity >100 ng/mL (>250 nmol/L) Performed By: #### L 500.4100, L500.4050, L506.1000, L100.0100, L501.9985 #### [facility] [place], [address] Whole blood hemoglobin A1c/t otal hemoglobin ratio (mass fraction)Ordered By: Price Benitez on 06-03-2023 HbA1c (Bld) [Mass fraction] 5.6 % 3.8-5.6 [facility] Comment on above: Normal < 5.7 % Predi abetic 5.7 - 6.4 % Diabetic >or= 6.5 % Please note range changes. Absolute lymphocyte countOrd ered By: Price Benitez on 10-29-2022 Lymphocytes Auto (Unsp spec) [#/Vol] 1.29 10*3/uL 0.83-4.51 [facility] Basophil percentageOrdered B y: Price Benitez on 10-29-2022 Basophils/100 WBC (Bld) 0.2 % 0-1 [facility] Bilirubin [Mass/Vol] 0.60 mg/dL 0.20-1.00 [facility] Comment on above: For patients on eltr ombopag therapy, use of Dimension [place] TBIL is not recommended. Chloride [Moles/Vol] 105 mmol/L 98-107 [facility] Cholesterol [Mass/Vol] 137 mg/dL <200 [facility] Comment on above: <200 mg/dL Desirable 200-240 mg/dL Borderline >240 mg/dL High Risk Eosinophils/100 WBC (Bld) 2.3 % 0-5 [facility] Glucose [Mass/Vol] 101 mg/dL 74-106 [facility] Comment on above: Fasting Glucose resu lt from 100 to 125 mg/dL suggests IMPAIRED HOMEOSTASIS per A.D.A. criteria. Neutrophils (Bld) [#/Vol] 3.5 10*3/uL 2.0-7.7 [facility] Neutrophils/100 WBC (Bld) 66.2 % 47-70 [facility] Potassium [Moles/Vol] 4.3 mmol/L 3.5-5.1 [facility] Protein [Mass/Vol] 7.4 g/dL 6.4-8.2 [facility] Sodium [Moles/Vol] 138 mmol/L 136-145 [facility] Triglyceride [Mass/Vol] 73 mg/dL <199 [facility] Comment on above: The drugs N-Acetylcy steine and Metamizole may falsely depress this assay.Serum Triglycerides Reference Interval Normal <150 mg/dL Borderline high 150 - 199 mg/dL High 200 - 499 mg/dL Very High > or = 500 mg/dL WBC (Bld) [#/Vol] 5.2 10*3/uL 4.4-11.0 [facility] Blood erythrocytes count (nu mber/volume)Ordered By: Price Benitez on 10-29-2022 RBC (Bld) [#/Vol] 4.55 10*6/uL 4.6-6.2 [facility] Blood hemoglobin measurement (mass/volume)Ordered By: Price Benitez on 10-29-2022 Hemoglobin (Bld) [Mass/Vol] 14.5 g/dL 13.0-16.5 [facility] Blood lymphocytes/100 leukoc ytesOrdered By: Price Benitez on 10-29-2022 Lymphocytes/100 WBC (Bld) 24.8 % 19-41 [facility] Blood monocytes/100 leukocyt esOrdered By: Price Benitez on 10-29-2022 Monocytes/100 WBC (Bld) 6.3 % 0-10 [facility] Blood platelet mean volumeOr dered By: Price Benitez on 10-29-2022 Platelet mean volume (Bld) [Entitic vol] 9.8 fL 6.2-12.0 [facility] Determination of erythrocyte mean corpuscular volume (MCV)Ordered By: Price Benitez on 10-29-2022 MCV (RBC) [Entitic vol] 96.7 fL 80-94 [facility] Hematocrit Auto (Bld) [Volum e fraction]Ordered By: Price Benitez on 10-29-2022 Hematocrit (Bld) [Volume fraction] 44.0 % 40-54 [facility] Laboratory - Chemistry and C hemistry - challengeOrdered By: Price Benitez on 10-29-2022 ALP [Catalytic activity/Vol] 66 U/L 45-117 [facility] ALT [Catalytic activity/Vol] 36 U/L 16-61 [facility] CO2 [Moles/Vol] 28.0 mmol/L 21.0-32.0 [facility] Globulin (S) [Mass/Vol] 3.5 g/dL 2.2-4.2 [facility] Urea nitrogen/Creatinine [Mass ratio] 15.7 mg/mg 10-20 [facility] Laboratory - Hematology and Cell countsOrdered By: Price Benitez on 10-29-2022 Erythrocyte distribution width (RBC) [Entitic vol] 46.6 fL 35.1-43.9 [facility] Erythrocyte distribution width (RBC) [Ratio] 13.0 % 11.6-14.6 [facility] Immature granulocytes/100 WBC (Bld) 0.200 % 0.0-0.9 [facility] Comment on above: IG% - Immature Granu locytes (promyelocytes, myelocytes and metamyelocytes) > 1% indicates that a LEFT SHIFT is Present. MCH (RBC) [Entitic mass] 31.9 pg 27.0-32.0 [facility] Nucleated RBC/100 WBC (Bld) [Ratio] 0 % 0-5 [facility] Auto (RBC) [Mass/Vol]Or dered By: Price Benitez on 10-29-2022 MCHC (RBC) [Mass/Vol] 33.0 g/dL 32-36 [facility] No Panel InformationOrdered By: Price Benitez on 10-29-2022 Estimated GFR (MDRD) Amer 94 mL/min >60 [facility] Comment on above: GFR Calc Estimated GFR (MDRD) Non-Af Amer 78 mL/min >60 [facility] Comment on above: Non- GFR Calc Vitamin D 25-Hydroxy 54.7 ng/mL [facility] Comment on above: Vitamin D 25(OH) Sta tus Range Deficiency <20 ng/mL (50nmol/L) Insufficiency 20 - 30 ng/mL (50 - 75 nmol/L) Sufficiency 30 - 100 ng/mL (75 - 250 nmol/L) Toxicity >100 ng/mL (>250 nmol/L) Platelets bldOrdered By: Mason Benitez on 10-29-2022 Platelets (Bld) [#/Vol] 194 10*3/uL 150-450 [facility] Serum or plasma albumin isabel urement (mass/volume)Ordered By: Price Benitez on 10-29-2022 Albumin [Mass/Vol] 3.9 g/dL 3.2-5.0 [facility] Serum or plasma albumin/glob ulin mass ratioOrdered By: Price Benitez on 10-29-2022 Albumin/Globulin [Mass ratio] 1.1 {ratio} 0.9-2.4 [facility] Serum or plasma calcium isabel urement (mass/volume)Ordered By: Price Benitez on 10-29-2022 Calcium [Mass/Vol] 9.4 mg/dL 8.5-10.1 [facility] Serum or plasma cholesterol in HDL measurement (mass/volume)Ordered By: Price Benitez on 10-29-2022 Cholesterol in HDL [Mass/Vol] 51 mg/dL >40 [facility] Comment on above: The drugs N-Acetylcy steine and Metamizole may falsely depress this assay. Reference Range HDL <40 mg/dL Low HDL Cholesterol HDL >or= 60 mg/dL High HDL Cholesterol Serum or plasma cholesterol in VLDL measurement (mass/volume)Ordered By: Price Benitez on 10-29-2022 Cholesterol in VLDL [Mass/Vol] 15 mg/dL 5-40 [facility] Serum or plasma creatinine m easurement (mass/volume)Ordered By: Price Benitez on 10-29-2022 Creatinine [Mass/Vol] 1.02 mg/dL 0.70-1.30 [facility] Comment on above: The validity of the calculated GFR & GFRAA in patients over 70 years has not been determined. Clinical correlation is essential. Serum or plasma low density lipoprotein (LDL) cholesterol measurement (mass/volume)Ordered By: Price Benitez on 10-29-2022 Cholesterol in LDL [Mass/Vol] 71 mg/dL 0-130 [facility] Serum or plasma urea nitroge n measurement (mass/volume)Ordered By: Price Benitez on 10-29-2022 Urea nitrogen [Mass/Vol] 16 mg/dL 7-18 [facility] Thin prep Papanicolaou smear with manual screeningOrdered By: Price Benitez on 10-29-2022 Thin prep Papanicolaou smear with manual screening 21 U/L 15-37 [facility] Thin prep Papanicolaou smear with manual screening 5 5-15 [facility] Whole blood hemoglobin A1c/t otal hemoglobin ratio (mass fraction)Ordered By: Price Benitez on 10-29-2022 HbA1c (Bld) [Mass fraction] 6.0 % 3.8-5.6 [facility] Comment on above: Normal < 5.7 % Predi abetic 5.7 - 6.4 % Diabetic >or= 6.5 % Please note range changes. 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) 1955 M Date Time Provider Department 09/07/22 3:00 PM TIM PINEDA PTWS Date Time Provider Department Trail 09/07/2022 3:00 PM [id number] Reason for Visit: PT Progress Note [1596] PT Discharge [752] Primary Visit Diagnosis:Injury of left rotator cuff, subsequent encounter [S46.002D] Allergies As of Date: 09/07/2022 (Not on File) Date Reviewed: Never Reviewed Letter Text Normal [facility] CNTHERAPYon 08-23-2022 CNTHERAPY OT/PT/Speech Visit ( PTWS) HARSHAD SILVERMAN ([id number]) 1955 M Date Time Provider Department 08/23/22 4:15 PM TIM PINEDA Date Time Provider Department Trail 08/23/2022 4:15 PM [id number] Reason for Visit: Physical Therapy [503] Primary Visit Diagnosis:Injury of left rotator cuff, subsequent encounter [S46.002D] Allergies As of Date: 08/23/2022 (Not on File) Date Reviewed: Never Reviewed Normal [facility] CNTHERAPYon 08-05-2022 CNTHERAPY OT/PT/Speech Visit ( PTWS) 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) 1955 M Date Time Provider Department 08/05/22 3:00 PM TIM PINEDA PTWS Date Time Provider Department Trail 08/05/2022 3:00 PM [id number], COREY PTWS [facility] Reason for Visit: PT Maxim [747] Primary Visit Diagnosis:Injury of left rotator cuff, subsequent encounter [S46.002D] Allergies As of Date: 08/05/2022 (Not on File) Date Reviewed: Never Reviewed Letter Text Normal [facility] percentageOrdered B y: Price Benitez on 07-07-2022 Bilirubin [Mass/Vol] 0.70 mg/dL 0.20-1.00 [facility] Comment on above: For patients on eltr ombopag therapy, use of Dimension [place] TBIL is not recommended. Chloride [Moles/Vol] 104 mmol/L 98-107 [facility] Cholesterol [Mass/Vol] 210 mg/dL <200 [facility] Comment on above: <200 mg/dL Desirable 200-240 mg/dL Borderline >240 mg/dL High Risk Glucose [Mass/Vol] 98 mg/dL 74-106 [facility] Potassium [Moles/Vol] 4.3 mmol/L 3.5-5.1 [facility] Protein [Mass/Vol] 7.4 g/dL 6.4-8.2 [facility] Sodium [Moles/Vol] 138 mmol/L 136-145 [facility] Triglyceride [Mass/Vol] 115 mg/dL <199 [facility] Comment on above: The drugs N-Acetylcy steine and Metamizole may falsely depress this assay.Serum Triglycerides Reference Interval Normal <150 mg/dL Borderline high 150 - 199 mg/dL High 200 - 499 mg/dL Very High > or = 500 mg/dL Laboratory - Chemistry and C hemistry - challengeOrdered By: Price Benitez on 07-07-2022 ALP [Catalytic activity/Vol] 76 U/L 45-117 [facility] ALT [Catalytic activity/Vol] 45 U/L 16-61 [facility] CO2 [Moles/Vol] 27.0 mmol/L 21.0-32.0 [facility] Globulin (S) [Mass/Vol] 3.5 g/dL 2.2-4.2 [facility] Urea nitrogen/Creatinine [Mass ratio] 20.5 mg/mg 10-20 [facility] No Panel InformationOrdered By: Price Benitez on 07-07-2022 Estimated GFR (MDRD) Amer 105 mL/min >60 [facility] Comment on above: GFR Calc Estimated GFR (MDRD) Non-Af Amer 87 mL/min >60 [facility] Comment on above: Non- GFR Calc Vitamin D 25-Hydroxy 60.8 ng/mL [facility] Comment on above: Vitamin D 25(OH) Sta tus Range Deficiency <20 ng/mL (50nmol/L) Insufficiency 20 - 30 ng/mL (50 - 75 nmol/L) Sufficiency 30 - 100 ng/mL (75 - 250 nmol/L) Toxicity >100 ng/mL (>250 nmol/L) Serum or plasma albumin isabel urement (mass/volume)Ordered By: Price Benitez on 07-07-2022 Albumin [Mass/Vol] 3.9 g/dL 3.2-5.0 [facility] Serum or plasma albumin/glob ulin mass ratioOrdered By: Price Benitez on 07-07-2022 Albumin/Globulin [Mass ratio] 1.1 {ratio} 0.9-2.4 [facility] Serum or plasma calcium isabel urement (mass/volume)Ordered By: Price Benitez on 07-07-2022 Calcium [Mass/Vol] 9.1 mg/dL 8.5-10.1 [facility] Serum or plasma cholesterol in HDL measurement (mass/volume)Ordered By: Price Benitez on 07-07-2022 Cholesterol in HDL [Mass/Vol] 45 mg/dL >40 [facility] Comment on above: The drugs N-Acetylcy steine and Metamizole may falsely depress this assay. Reference Range HDL <40 mg/dL Low HDL Cholesterol HDL >or= 60 mg/dL High HDL Cholesterol Serum or plasma cholesterol in VLDL measurement (mass/volume)Ordered By: Price Benitez on 07-07-2022 Cholesterol in VLDL [Mass/Vol] 23 mg/dL 5-40 [facility] Serum or plasma creatinine m easurement (mass/volume)Ordered By: Price Benitez on 07-07-2022 Creatinine [Mass/Vol] 0.93 mg/dL 0.70-1.30 [facility] Comment on above: The validity of the calculated GFR & GFRAA in patients over 70 years has not been determined. Clinical correlation is essential. Serum or plasma low density lipoprotein (LDL) cholesterol measurement (mass/volume)Ordered By: Price Benitez on 07-07-2022 Cholesterol in LDL [Mass/Vol] 142 mg/dL 0-130 [facility] Serum or plasma urea nitroge n measurement (mass/volume)Ordered By: Price Benitez on 07-07-2022 Urea nitrogen [Mass/Vol] 19 mg/dL 7-18 [facility] Thin prep Papanicolaou smear with manual screeningOrdered By: Price Benitez on 07-07-2022 Thin prep Papanicolaou smear with manual screening 26 U/L 15-37 [facility] Thin prep Papanicolaou smear with manual screening 7 5-15 [facility] Whole blood hemoglobin A1c/t otal hemoglobin ratio (mass fraction)Ordered By: Price Benitez on 07-07-2022 HbA1c (Bld) [Mass fraction] 5.7 % 3.8-5.6 [facility] Comment on above: Normal < 5.7 % Predi abetic 5.7 - 6.4 % Diabetic >or= 6.5 % Please note range changes. Absolute lymphocyte countOrd ered By: Dr. Benitez on 02-04-2022 Lymphocytes Auto (Unsp spec) [#/Vol] 1.53 10*3/uL 0.83-4.51 [facility] Basophil percentageOrdered B y: Dr. Benitez on 02-04-2022 Basophils/100 WBC (Bld) 0.4 % 0-1 [facility] Bilirubin [Mass/Vol] 0.50 mg/dL 0.20-1.00 [facility] Comment on above: For patients on eltr ombopag therapy, use of Dimension [place] TBIL is not recommended. Chloride [Moles/Vol] 104 mmol/L 98-107 [facility] Eosinophils/100 WBC (Bld) 3.0 % 0-5 [facility] Glucose [Mass/Vol] 104 mg/dL 74-106 [facility] Comment on above: Fasting Glucose resu lt from 100 to 125 mg/dL suggests IMPAIRED HOMEOSTASIS per A.D.A. criteria. Neutrophils (Bld) [#/Vol] 3.5 10*3/uL 2.0-7.7 [facility] Neutrophils/100 WBC (Bld) 62.0 % 47-70 [facility] Potassium [Moles/Vol] 4.2 mmol/L 3.5-5.1 [facility] Protein [Mass/Vol] 7.2 g/dL 6.4-8.2 [facility] Sodium [Moles/Vol] 138 mmol/L 136-145 [facility] WBC (Bld) [#/Vol] 5.6 10*3/uL 4.4-11.0 [facility] Blood erythrocytes count (nu mber/volume)Ordered By: Dr. Benitez on 02-04-2022 RBC (Bld) [#/Vol] 4.71 10*6/uL 4.6-6.2 [facility] Blood hemoglobin measurement (mass/volume)Ordered By: Dr. Benitez on 02-04-2022 Hemoglobin (Bld) [Mass/Vol] 15.1 g/dL 13.0-16.5 [facility] Blood lymphocytes/100 leukoc ytesOrdered By: Dr. Benitez on 02-04-2022 Lymphocytes/100 WBC (Bld) 27.4 % 19-41 [facility] Blood monocytes/100 leukocyt esOrdered By: Dr. Benitez on 02-04-2022 Monocytes/100 WBC (Bld) 6.8 % 0-10 [facility] Blood platelet mean volumeOr dered By: Dr. Benitez on 02-04-2022 Platelet mean volume (Bld) [Entitic vol] 9.9 fL 6.2-12.0 [facility] Determination of erythrocyte mean corpuscular volume (MCV)Ordered By: Dr. Benitez on 02-04-2022 MCV (RBC) [Entitic vol] 96.8 fL 80-94 [facility] Hematocrit Auto (Bld) [Volum e fraction]Ordered By: Dr. Benitez on 02-04-2022 Hematocrit (Bld) [Volume fraction] 45.6 % 40-54 [facility] Laboratory - Chemistry and C hemistry - challengeOrdered By: Dr. Benitez on 02-04-2022 ALP [Catalytic activity/Vol] 63 U/L 45-117 [facility] ALT [Catalytic activity/Vol] 41 U/L 16-61 [facility] CO2 [Moles/Vol] 29.0 mmol/L 21.0-32.0 [facility] Free T4 [Mass/Vol] 0.82 ng/dL 0.76-1.46 [facility] Globulin (S) [Mass/Vol] 3.1 g/dL 2.2-4.2 [facility] Urea nitrogen/Creatinine [Mass ratio] 21.5 mg/mg 10-20 [facility] Laboratory - Hematology and Cell countsOrdered By: Dr. Benitez on 02-04-2022 Erythrocyte distribution width (RBC) [Entitic vol] 46.4 fL 35.1-43.9 [facility] Erythrocyte distribution width (RBC) [Ratio] 12.9 % 11.6-14.6 [facility] Immature granulocytes/100 WBC (Bld) 0.400 % 0.0-0.9 [facility] Comment on above: IG% - Immature Granu locytes (promyelocytes, myelocytes and metamyelocytes) > 1% indicates that a LEFT SHIFT is Present. MCH (RBC) [Entitic mass] 32.1 pg 27.0-32.0 [facility] Nucleated RBC/100 WBC (Bld) [Ratio] 0 % 0-5 [facility] Auto (RBC) [Mass/Vol]Or dered By: Dr. Benitez on 02-04-2022 MCHC (RBC) [Mass/Vol] 33.1 g/dL 32-36 [facility] No Panel InformationOrdered By: Dr. Benitez on 02-04-2022 Estimated GFR (MDRD) Amer 104 mL/min >60 [facility] Comment on above: GFR Calc Estimated GFR (MDRD) Non-Af Amer 86 mL/min >60 [facility] Comment on above: Non- GFR Calc Prostate Specific Antigen Screen 0.55 ng/mL 0.00-4.00 [facility] Comment on above: This test was perfor med using the TPSA assay method for thevirocyt chemistry system. Values obtained with differentassay methods cannot be used interchangably.When changing PSA assays in the course of monitoring apatient, additional sequential testing should be carriedout to confirm baseline values. Thyroglobulin Antibody 10.6 IU/mL 0.0-0.9 [facility] Comment on above: Thyroglobulin Antibo dy measured by [employer] Thyroid Stimulating Hormone (TSH) 2.47 uIU/mL 0.358-3.74 [facility] Vitamin D 25-Hydroxy 36.7 ng/mL [facility] Comment on above: Vitamin D 25(OH) Sta tus Range Deficiency <20 ng/mL (50nmol/L) Insufficiency 20 - 30 ng/mL (50 - 75 nmol/L) Sufficiency 30 - 100 ng/mL (75 - 250 nmol/L) Toxicity >100 ng/mL (>250 nmol/L) Platelets bldOrdered By: Dr. Benitez on 02-04-2022 Platelets (Bld) [#/Vol] 187 10*3/uL 150-450 [facility] Serum or plasma albumin isabel urement (mass/volume)Ordered By: Dr. Benitez on 02-04-2022 Albumin [Mass/Vol] 4.1 g/dL 3.2-5.0 [facility] Serum or plasma albumin/glob ulin mass ratioOrdered By: Dr. Benitez on 02-04-2022 Albumin/Globulin [Mass ratio] 1.3 {ratio} 0.9-2.4 [facility] Serum or plasma calcium isabel urement (mass/volume)Ordered By: Dr. Benitez on 02-04-2022 Calcium [Mass/Vol] 9.4 mg/dL 8.5-10.1 [facility] Serum or plasma creatinine m easurement (mass/volume)Ordered By: Dr. Benitez on 02-04-2022 Creatinine [Mass/Vol] 0.93 mg/dL 0.70-1.30 [facility] Comment on above: The validity of the calculated GFR & GFRAA in patients over 70 years has not been determined. Clinical correlation is essential. Serum or plasma urea nitroge n measurement (mass/volume)Ordered By: Dr. Benitez on 02-04-2022 Urea nitrogen [Mass/Vol] 20 mg/dL 7-18 [facility] Thin prep Papanicolaou smear with manual screeningOrdered By: Dr. Benitez on 02-04-2022 Thin prep Papanicolaou smear with manual screening 20 U/L 15-37 [facility] Thin prep Papanicolaou smear with manual screening 5 5-15 [facility] Thyroglobulin measurement by radioimmunoassay (SAV)Ordered By: Dr. Benitez on 02-04-2022 Thyroglobulin Ab SAV Qn (S) < 2.0 ng/mL . [facility] Comment on above: This test was develo ped and its performance characteristicsdetermined by [employer]. It has not been cleared or approvedby the Food and Drug Administration.Reference Range:Pubertal Childrenand Adults: <40According to the National Academy of Clinical Biochemistry,the reference interval for Thyroglobulin (TG) should berelated to euthyroid patients and not for patients whounderwent thyroidectomy. TG reference intervals for thesepatients depend on the residual mass of the thyroid tissueleft after surgery. Establishing a post-operative baselineis recommended. The assay quantitation limit is 2.0 ng/mL.Performed at: [facility] [address] [id number] Director: Chris Cho PhD, Phone: [phone] at: [facility] [id number] [place], [place] [id number] Director: Jose A Maldonado MD, Phone: [phone] Whole blood hemoglobin A1c/t otal hemoglobin ratio (mass fraction)Ordered By: Dr. Benitez on 02-04-2022 HbA1c (Bld) [Mass fraction] 5.7 % 3.8-5.6 [facility] Comment on above: Normal < 5.7 % Predi abetic 5.7 - 6.4 % Diabetic >or= 6.5 % Please note range changes. Encounters Encounter Date Encounter Type Care Provider Facility Start: 04-06-2024 End: 04-06-2024 ambulatory Price Benitez Facility:[facility] Start: 02-28-2024 End: 02-28-2024 ambulatory Price Benitez Facility:[facility] Start: 01-24-2024 Encounter for genera l adult medical examination without abnormal findings Price Benitez [facility] Start: 01-20-2024 End: 01-20-2024 ambulatory Price Benitez Facility:[facility] Start: 12-27-2023 End: 12-27-2023 ambulatory Price Benitez Facility:[facility] Start: 07-07-2023 End: 07-07-2023 ambulatory Price Benitez Facility:[facility] Start: 06-03-2023 End: 06-03-2023 ambulatory [facility] Work Phone: Start: 06-03-2023 End: 06-03-2023 Patient encounter procedure [facility] Work Phone: Start: 06-03-2023 End: 06-03-2023 ambulatory Price Benitez Facility:[facility] Start: 10-29-2022 End: 10-29-[address] Price Benitez Work Phone: [facility] Work Phone: Start: 10-29-2022 End: 10-29-[address] Price Benitez Work Phone: [facility] Work Phone: Start: 09-07-2022 End: 09-07-2022 ambulatory TIM EDWIN Facility:[facility] Start: 08-23-2022 End: 08-23-2022 ambulatory TIM EDWIN Facility:[facility] Start: 08-23-2022 End: 08-23-2022 ambulatory Tim Pineda PT Work Phone: [facility] Comment on above: Injury of left rotat or cuff, subsequent encounter (Primary Dx) Start: 08-05-2022 End: 08-05-2022 ambulatory Tim Pineda PT Work Phone: [facility] Comment on above: Injury of left rotat or cuff, subsequent encounter (Primary Dx) Start: 07-07-2022 End: 07-07-[address] Price Benitez Work Phone: [facility] Work Phone: Start: 07-07-2022 End: 07-07-[address] Price Benitez Work Phone: [facility] Start: 02-16-2022 End: 02-16-2022 ambulatory [facility] Work Phone: Start: 02-16-2022 End: 02-16-2022 Patient encounter procedure [facility] Start: 02-04-2022 End: 02-04-2022 ambulatory [facility] Work Phone: Start: 02-04-2022 End: 02-04-2022 Patient encounter procedure [facility], [facility] Procedures Date Procedure Procedure Detail Performing Clinician Start: 07-07-2022 Plain X-ray of shoulder Dr. Price Benitez Work Phone: Start: 02-16-2022 US scan of thyroid Plan of Treatment Date Care Activity Detail Author Start: 10-15-2022 Influenza vaccination INFLUENZA (#1) [facility] Start: 02-16-2022 US scan of thyroid Thyroid [facility] Work Phone: Start: 02-16-2022 US Thyroid gland [facility] Work Phone: Start: 02-14-2022 ADVANCE DIRECTIVE DISCUSSION ADVANCE DIRECTIVE DISCUSSION [facility] Start: 02-14-2022 DEPRESSION ASSESSMENT DEPRESSION ASSESSMENT [facility] Start: 2021 PNEUMOCOCCAL: 65+ (1 - PCV) PNEUMOCOCCAL: 65+ (1 - PCV) [facility] Start: 07-10-2020 COVID-19 VACCINE (2 - Pfizer series) COVID-19 VACCINE (2 - Pfizer series) [facility] Start: 06-09-2011 PROSTATE CANCER SCREENING DISCUSSION PROSTATE CANCER SCREENING DISCUSSION [facility] Start: 2006 SHINGRIX VACCINE (1 of 2) SHINGRIX VACCINE (1 of 2) [facility] Start: 2001 COLOGUARD (FIT-DNA) COLOGUARD (FIT-DNA) [facility] Start: 2001 Colonoscopy COLONOSCOPY [facility] Start: 2001 COLORECTAL CANCER SCREENING COLORECTAL CANCER SCREENING [facility] Start: [address] COLONOGRAPHY [facility] Start: 2001 DIABETES SCREEN DIABETES SCREEN [facility] Start: 2001 FECAL OCCULT BLOOD FECAL OCCULT BLOOD [facility] Start: 2001 SIGMOIDOSCOPY SIGMOIDOSCOPY [facility] Start: 06-09-1991 LIPID SCREEN LIPID SCREEN [facility] Start: 06-09-1975 Urine microalbumin profile DTAP,TDAP,TD (1 - Tdap) [facility] Start: 1974 HEPATITIS C SCREENING HEPATITIS C SCREENING [facility] Thyroglobulin antibo dy measurement [facility] Work Phone: [facility] Payers Date Payer Category Payer Medicare [id number] 2023 Self-pay 2021 Medicare [employer] MEDICARE A ETNA MEDICARE PPO [id number] 2021-Present [phone] [address] [place] [address] PPO [id number] 2021 Private Health Insurance [facility] [id number] Unknown [id number] 62 Unknown [id number] 63 Unknown [id number] 63 Unknown [id number] 63 Unknown [id number] 63 Unknown [id number] 63 Social History Date Type Detail Facility Tobacco smoking stat [facility] Unknown if ever smoked [facility] Work Phone: Start: 1955 Sex Assigned At Male [facility] Tobacco smoking stat [facility] Tobacco smoking consumption unknown [facility] Start: 1955 Sex Assigned At Not on file [facility] Start: 08-23-2022 History of Social function [facility] Start: 08-23-2022 Area Deprivation Index [facility] National Score (1-10 0), lower number is lower risk 35 [facility] Progress note 11-25-2022 Note Date & Type Note Facility 11-25-2022 Note HNO ID: [id number] Author: Tim Pineda PT Service: ? Author Type: Physical Therapist Type: Progress Notes Filed: 11/25/2022 4:33 PM Note Text: 11/25/2022 [facility] PHYSICAL THERAPY DISCONTINUANCE OF CARE Plan of Care Period: Start of Care Date: 08/05/22 Last Visit Date: 09/07/2022 Therapy Program: The following is a summary of the interventions provided for this episode of care; Therapeutic exercise and Manual therapy Assessment: The following is the goal status: Updated 09/07/2022 Goals for Episode of Care: created on 08/05/22 through 09/30/22 [place] in home exercise program. - Progressing, will continue Perform reaching overhead without pain. - Not met Increased strength of L shoulder to 5/5 for return to PLOF and return to work out regimen - Not met Patient Goals: Decrease shoulder pain Based on the most recent progress report, patient was progressing slower than expected toward functional goals based on pain levels and documented subjective information on progress. Reason for Discontinuation of Care: Patient has not returned to therapy or scheduled additional follow-up appointments. Tim Pineda PT [facility] Progress note 09-07-2022 Note Date & Type Note Facility 09-07-2022 Note HNO ID: [id number] Author: Tim Pineda PT Service: ? Author Type: Physical Therapist Type: Progress Notes Filed: 09/07/2022 4:02 PM Note Text: Episode Visit Count: 3 Therapist That Will Accept/Oversee The Plan Of Care: Tim Pineda Start of Care Date: 08/05/22 Onset Date: 04/07/22 Plan of Care Certification Date: 08/05/22 Next Certification Due Date: 10/05/22 Patient Identified by Name and Date of : Yes [facility]ATION [facility] PHYSICAL THERAPY PROGRESS REPORT PLAN OF CARE UPDATE: Assessment: Harshad Silverman demonstrates difficulty with lifting, reaching behind back, reaching overhead, and use hand with arm at shoulder level and improvements in level of independence with the HEP. He has Not progressed towards goals. Patient continues to present with impairments in overall function, strength, and symptom management that interfere with reaching overhead . Current prognosis is Good due to: current objective clinical presentation . Pain with MMT of the supraspinatus, infraspinatus, and a positive Yergason's test. PT will be placed on hold until pt has a follow-up with the referring provider for further diagnostic testing. Updated 09/07/2022 Goals for Episode of Care: created on 08/05/22 through 09/30/22 [place] in home exercise program. - Progressing, will continue Perform reaching overhead without pain. - Not met Increased strength of L shoulder to 5/5 for return to PLOF and return to work out regimen - Not met Patient Goals: Decrease shoulder pain Patient Goals: Decrease shoulder pain Planned Interventions, Frequency, and Duration: 1x/month, One month Total Number of Visits Planned: 1 Patient to be seen for Therapeutic exercise (83602), Neuromuscular re-education (47455), Manual therapy (42475), Self-long term management (98095), Patient/Family/Caregiver Education PLAN FOR NEXT VISIT: PT on hold for now until further diagnostic testing by referring provider SUBJECTIVE: Patient Reason for Visit: Not feeling much better. Not sure if this is because he does things that can irritate the shoulder. Pt was swimming and the overhead motion hurt. Pt was also working outside wraking and lifting heavier objects which has irritated the shoulder. Patient Goals: Decrease shoulder pain Functional Limitations: reaching overhead Prior Level of Function: Independent without limitations Intake Information: Prescription present Pain: Pain Pain Level: 6 Pain Location: Shoulder - Left PROMIS Scales Higher is Better 08/23/2022 07/26/2022 Phys Func - Score 50 (within normal limits) 55 (within normal limits) Phys Func - Percentile 50 % 69 % Self-Eff Symptom - Score 41 (Average) 38 (Low) Self-Eff Symptom - Percentile 18 % 12 % T-scores: mean of general population = 50. 5 points is clinically meaningfully difference Percentiles provide an indication of how the patient's score ranks in relation to the general population. Higher percentile rankings indicate better function/quality of life. 50th percentile is the average of the general population and indicates half of respondents had a worse score. OBJECTIVE MEASURES WITH LEVEL OF FUNCTION: UE AROM L Shoulder Flex: 170 Degrees (No increased pain during movement) L Shoulder ABduction: 170 Degrees (Some pain around 95 degrees) UE and Cervical Strength Strength Tested: Shoulder All R UE Strength: Grossly 5/5 L Shoulder Flexion: 4/5 (Familiar pain) L Shoulder Internal Rotation: 5/5 L Shoulder External Rotation: 3+/5 (Familiar pain) No popping or clicking that is audible or reported with elevation of the L shoulder Pain near labrum with resisted forearm supination TREATMENT: Therapeutic Exercise: 1: All objective measures taken this session' 2: Discussed continuing with the current HEP and advised pt to stop doing activities that irritate symptoms. Skilled Intervention: Patient was educated in proper exercise technique and purpose for exercises. Correct performance of therapeutic exercises was facilitated with verbal and visual cuing. Billing Therapeutic Exercise Treatment Minutes: 27 Total Treatment Time Minutes (timed/untimed): 27 Session Start Time : 1500 Session Stop Time : 1527 Tim Pineda PT [facility] Progress note 08-23-2022 Note Date & Type Note Facility 08-23-2022 Note HNO ID: [id number] Author: Tim Pineda PT Service: ? Author Type: Physical Therapist Type: Progress Notes Filed: 08/23/2022 4:48 PM Note Text: Episode Visit Count: 2 Therapist That Will Accept/Oversee The Plan Of Care: Tim Pineda Start of Care Date: 08/05/22 Onset Date: 04/07/22 Plan of Care Certification Date: 08/05/22 Next Certification Due Date: 09/09/22 Patient Identified by Name and Date of : Yes REHABIL[facility]ATION AND [facility]ORTS [facility]ERAPY PHYSICAL THERAPY TREATMENT NOTE ASSESSMENT: Harshad Silverman tolerated the session with no issues. He demonstrated improved pain levels with ER when using pink TB vs Yellow TB. The patient will continue to benefit from ongoing skilled physical therapy to progress toward set goals. PLAN FOR NEXT VISIT: POC update. Progress infraspinatus and supraspinatus loading SUBJECTIVE: Patient Reason for Visit: Thought he was improving but a couple days ago he reached over to shut off the alarm. Got a sharp pain and feels he is back to the beginning. Maybe felt that he was around 20% better. Pain: Pain Pain Level: (Same as last time) Pain Location: Shoulder - Left OBJECTIVE MEASURES WITH LEVEL OF FUNCTION: Pain with manual muscle testing of the L infraspinatus and supraspinatus for pain Negative Subscapularis and teres minor manual muscle testing for pain Slightly positive Yergason's test LUE Pain with PROM flexion at 120 degrees and worsens with further elevation TREATMENT: Therapeutic Exercise: 1: Standing shoulder abd YTB 3 x 10 2: Standing shoulder Er YTB x 10 3: Standing shoulder ER pink TB 2 x 10 Skilled Intervention: Patient was educated in proper exercise technique and purpose for exercises. Correct performance of therapeutic exercises was facilitated with verbal and visual cuing. Billing Therapeutic Exercise Treatment Minutes: 30 Total Treatment Time Minutes (timed/untimed): 30 Tim Pineda PT [facility] History of Present illness Narrative 08-23-2022 Tim Pineda PT - 08/23/2022 4:12 PM EDT Note Date & Type Note Facility 08-23-2022 History of Presen t illness Narrative Episode Visit Count: 2 Therapist That Will Accept/Oversee The Plan Of Care: Tim Pineda Start of Care Date: 08/05/22 Onset Date: 04/07/22 Plan of Care Certification Date: 08/05/22 Next Certification Due Date: 09/09/22 Patient Identified by Name and Date of : Yes REHABIL[facility]ATION AND [facility]ORTS [facility]ERAPY PHYSICAL THERAPY TREATMENT NOTE ASSESSMENT: Harshad Silverman tolerated the session with no issues. He demonstrated improved pain levels with ER when using pink TB vs Yellow TB. The patient will continue to benefit from ongoing skilled physical therapy to progress toward set goals. PLAN FOR NEXT VISIT: POC update. Progress infraspinatus and supraspinatus loading SUBJECTIVE: Patient Reason for Visit: Thought he was improving but a couple days ago he reached over to shut off the alarm. Got a sharp pain and feels he is back to the beginning. Maybe felt that he was around 20% better. Pain: Pain Pain Level: (Same as last time) Pain Location: Shoulder - Left OBJECTIVE MEASURES WITH LEVEL OF FUNCTION: Pain with manual muscle testing of the L infraspinatus and supraspinatus for pain Negative Subscapularis and teres minor manual muscle testing for pain Slightly positive Yergason's test LUE Pain with PROM flexion at 120 degrees and worsens with further elevation TREATMENT: Therapeutic Exercise: 1: Standing shoulder abd YTB 3 x 10 2: Standing shoulder Er YTB x 10 3: Standing shoulder ER pink TB 2 x 10 Skilled Intervention: Patient was educated in proper exercise technique and purpose for exercises. Correct performance of therapeutic exercises was facilitated with verbal and visual cuing. Billing Therapeutic Exercise Treatment Minutes: 30 Total Treatment Time Minutes (timed/untimed): 30 Tim Pineda PT documented in this encounter [facility] Progress note 08-05-2022 Note Date & Type Note Facility 08-05-2022 Note HNO ID: [id number] Author: Tim Pineda PT Service: ? Author Type: Physical Therapist Type: Progress Notes Filed: 08/05/2022 4:07 PM Note Text: Episode Visit Count: 1 Therapist That Will Accept/Oversee The Plan Of Care: Tim Pineda Start of Care Date: 08/05/22 Onset Date: 04/07/22 Plan of Care Certification Date: 08/05/22 Next Certification Due Date: 09/09/22 Patient Identified by Name and Date of : Yes REHABIL[facility]ATION AND [facility]ORTS THERAPY PHYSICAL THERAPY EVALUATION PLAN OF CARE: Assessment: Harshad Silverman presents with chief complaint of L shoulder pain that interferes with reaching overhead . He presents with impairments in ADL's, independence in exercise, overall function, and strength. PROMIS? (Patient-Reported Outcomes Measurement Information System) scores were reviewed and self efficacy domain identified as a rehabilitation concern. Prognosis for therapy is Good due to: current objective clinical presentation . Pt demo's positive empty can, biceps load test 2, and yergason's test. He will benefit from skilled therapy services to meet the goals established for this plan of care as noted below. Goals for Episode of Care: created on 08/05/22 through 09/30/22 [place] in home exercise program. Perform reaching overhead without pain. Increased strength of L shoulder to 5/5 for return to PLOF and return to work out regimen Patient Goals: Decrease shoulder pain Planned Interventions, Frequency, and Duration: Current Frequency: 1x every other week Duration: 4 weeks Total Number of Visits Planned: 2 Planned Treatment Interventions: Therapeutic exercise (85813), Neuromuscular re-education (15666), Manual therapy (92807), Self-long term management (29605), Patient/Family/Caregiver Education PLAN FOR NEXT VISIT: Assess reaction to HEP. Continue to load the ER and supraspinatus Patient demonstrates good understanding of plan of care and treatment. The above goals and plan of care were discussed and agreed upon by patient/family. SUBJECTIVE: Harshad Silverman is a 67 year old male seen today for Injury during a waterslide. Reached out and grabbed something which over extended the Left shoulder back in march. Had an X-ray done and there are no fractures. Has continued to work out once a week with reduced weight. This hurts it. Some popping in the shoulder that is new since the injury. Disloactaed one of his shoulders awhile ago. No change in strength noted. Patient Goals: Decrease shoulder pain Functional Limitations: reaching overhead Prior Level of Function: Independent without limitations Intake Information: Prescription present Pain: Pain Pain Level: 5 Pain Location: Shoulder - Left Description: Sharp PROMIS Scales Higher is Better 07/26/2022 Phys Func - Score 55 (within normal limits) Phys Func - Percentile 69 % Self-Eff Symptom - Score 38 (Low) Self-Eff Symptom - Percentile 12 % T-scores: mean of general population = 50. 5 points is clinically meaningfully difference Percentiles provide an indication of how the patient's score ranks in relation to the general population. Higher percentile rankings indicate better function/quality of life. 50th percentile is the average of the general population and indicates half of respondents had a worse score. OBJECTIVE MEASURES WITH LEVEL OF FUNCTION: Cervical Spine ROM Cervical ROM : Limitation AROM Cervical Flexion AROM: Normal Cervical Extension AROM: Normal Cervical Side-Bend Right AROM: Normal Cervical Side-Bend Left AROM: Normal Cervical Rotation Right AROM: Normal Cervical Rotation Left AROM: Normal UE AROM L Shoulder Flex: 170 Degrees (Painful at 120; better with thumb up vs thumb down) L Shoulder ABduction: 170 Degrees UE PROM L UE PROM: Less pain with PROM vs AROM into elevation UE and Cervical Strength Strength Tested: Shoulder All R UE Strength: Grossly 5/5 L Shoulder Flexion: 4/5 L Shoulder Internal Rotation: 5/5 L Shoulder External Rotation: 3+/5 Special Tests - Shoulder Shoulder Special Tests: Empty Can, Biceps Load (Positive yergoson's test on the LUE) Biceps Load: Left Positive Empty Can: Left Positive Education: Education Learning Preferences: Demonstration, Explanation, Performance, Printed Materials Barriers: None Learning/educational needs: Home exercise program, Plan of Care Education Provided: Yes, see treatment interventions for education provided Education Provided To: Patient Education Mode/Type: Demonstration, Explanation/Discussion, Literature/Printed Materials Response to Education/Teach Back: States/Identifies, Return Demonstration TREATMENT: PT Treatment Interventions: Therapeutic Exercise Evaluation Therapeutic Exercise: 1: Discussed therapy goals, exam findings and purpose of the HEP. Discussed possible causes of pain including RTC's and labrum. Discussed anatomy of the shoulder. Suggested pt sleep with support (more content not included)... [facility] History of Present illness Narrative 08-05-2022 Tim Pineda PT - 08/05/2022 2:58 PM EDT Note Date & Type Note Facility 08-05-2022 History of Presen t illness Narrative Episode Visit Count: 1 Therapist That Will Accept/Oversee The Plan Of Care: Tim Pineda Start of Care Date: 08/05/22 Onset Date: 04/07/22 Plan of Care Certification Date: 08/05/22 Next Certification Due Date: 09/09/22 Patient Identified by Name and Date of : Yes REHABILITATION AND SPORTS THERAPY PHYSICAL THERAPY EVALUATION PLAN OF CARE: Assessment: Harshad Silverman presents with chief complaint of L shoulder pain that interferes with reaching overhead . He presents with impairments in ADL's, independence in exercise, overall function, and strength. PROMIS (Patient-Reported Outcomes Measurement Information System) scores were reviewed and self efficacy domain identified as a rehabilitation concern. Prognosis for therapy is Good due to: current objective clinical presentation . Pt demo's positive empty can, biceps load test 2, and yergason's test. He will benefit from skilled therapy services to meet the goals established for this plan of care as noted below. Goals for Episode of Care: created on 08/05/22 through 09/30/22 [place] in home exercise program. Perform reaching overhead without pain. Increased strength of L shoulder to 5/5 for return to PLOF and return to work out regimen Patient Goals: Decrease shoulder pain Planned Interventions, Frequency, and Duration: Current Frequency: 1x every other week Duration: 4 weeks Total Number of Visits Planned: 2 Planned Treatment Interventions: Therapeutic exercise (57581), Neuromuscular re-education (10557), Manual therapy (74155), Self-long term management (08066), Patient/Family/Caregiver Education PLAN FOR NEXT VISIT: Assess reaction to HEP. Continue to load the ER and supraspinatus Patient demonstrates good understanding of plan of care and treatment. The above goals and plan of care were discussed and agreed upon by patient/family. SUBJECTIVE: Harshad Silverman is a 67 year old male seen today for Injury during a waterslide. Reached out and grabbed something which over extended the Left shoulder back in march. Had an X-ray done and there are no fractures. Has continued to work out once a week with reduced weight. This hurts it. Some popping in the shoulder that is new since the injury. Disloactaed one of his shoulders awhile ago. No change in strength noted. Patient Goals: Decrease shoulder pain Functional Limitations: reaching overhead Prior Level of Function: Independent without limitations Intake Information: Prescription present Pain: Pain Pain Level: 5 Pain Location: Shoulder - Left Description: Sharp PROMIS Scales Higher is Better 07/26/2022 Phys Func - Score 55 (within normal limits) Phys Func - Percentile 69 % Self-Eff Symptom - Score 38 (Low) Self-Eff Symptom - Percentile 12 % T-scores: mean of general population = 50. 5 points is clinically meaningfully difference Percentiles provide an indication of how the patient's score ranks in relation to the general population. Higher percentile rankings indicate better function/quality of life. 50th percentile is the average of the general population and indicates half of respondents had a worse score. OBJECTIVE MEASURES WITH LEVEL OF FUNCTION: Cervical Spine ROM Cervical ROM : Limitation AROM Cervical Flexion AROM: Normal Cervical Extension AROM: Normal Cervical Side-Bend Right AROM: Normal Cervical Side-Bend Left AROM: Normal Cervical Rotation Right AROM: Normal Cervical Rotation Left AROM: Normal UE AROM L Shoulder Flex: 170 Degrees (Painful at 120; better with thumb up vs thumb down) L Shoulder ABduction: 170 Degrees UE PROM L UE PROM: Less pain with PROM vs AROM into elevation UE and Cervical Strength Strength Tested: Shoulder All R UE Strength: Grossly 5/5 L Shoulder Flexion: 4/5 L Shoulder Internal Rotation: 5/5 L Shoulder External Rotation: 3+/5 Special Tests - Shoulder Shoulder Special Tests: Empty Can, Biceps Load (Positive yergoson's test on the LUE) Biceps Load: Left Positive Empty Can: Left Positive Education: Education Learning Preferences: Demonstration, Explanation, Performance, Printed Materials Barriers: None Learning/educational needs: Home exercise program, Plan of Care Education Provided: Yes, see treatment interventions for education provided Education Provided To: Patient Education Mode/Type: Demonstration, Explanation/Discussion, Literature/Printed Materials Response to Education/Teach Back: States/Identifies, Return Demonstration TREATMENT: PT Treatment Interventions: Therapeutic Exercise Evaluation Therapeutic Exercise: 1: Discussed therapy goals, exam findings and purpose of the HEP. Discussed possible causes of pain including RTC's and labrum. Discussed anatomy of the shoulder. Suggested pt sleep with support under the L shoulder. 2: Standing shoulder abd YTB 2 x 10 3: Standing shoulder ER YTB 2 x 10 (towel roll between arm and body) Skilled Intervention: Patient was educated in proper exercise technique and purpose for exercises. Provided written instruction for home exercise program to facilitate proper performance and compliance. Correct performance of therapeutic exercises was facilitated with verbal cuing. Billing * Evaluation Low Complexity: 1 Unit Therapeutic Exercise Treatment Minutes: 24 Total Treatment Time Minutes (timed/untimed): 45 Tim Pineda PT documented in this encounter [facility] Evaluation note Note Date & Type Note Facility Evaluation note No assessment information availa merlin [facility] Work Phone: Evaluation note Note Date & Type Note Facility Evaluation note Diagnosis Injury of left rotator cuff, subsequent encounter- Primary documented in this encounter [facility] Evaluation note Note Date & Type Note Facility Evaluation note Diagnosis Injury of left rotator cuff, subsequent encounter- Primary documented in this encounter [facility] Chief Complaint and Reason for Visit Chief Complaint THYROID NODULE Chief Complaint EORDER XRAY Chief Complaint EORDER XRAY EORDER Chief Complaint EORDER Reason for Referral Specialty Diagnoses / Procedures Referred By Contac t Referred To Contact [facility] Diagnoses Injury of left rotator cuff, subsequent encounter Procedures PT REHAB FOLLOW UP ORDER THERAPEUTIC EXERCISES RE, EA 15 MIN. Tim Pineda, PT [address] [place] [address] [facility] [place] [address] [place] [address] Referral ID Status Reason Start Date Expiration Date Visits Requested Visits Authorized [id number] Pending Review PCP Requested Referral Auto-Generate d Referral 08/05/2022 11/03/2022 1 1 Summary Purpose Family History No Family History Records FoundNo Family History Records Found Advance Directives No Advanced Directives Records FoundNo Advanced Directives Records Found Additional Source Comments Goals (unrecognized section and content) Goals may be documented in a n alternate sectionGoals may be documented in an alternate sectionGoals may be documented in an alternate sectionGoals may be documented in an alternate sectionGoals may be documented in an alternate section Care Teams (unrecognized sec tion and content) Team Status: Active Member Role Status Dates Dr. Price Benitez MD Primary Care Provider Active Team Status: Inactive Member Role Status Dates Dr. Price Benitez MD Primary Care Pr ovider, Attending Provider, Referring Provider Active Team Status: Inactive Member Role Status Dates Dr. Price Benitez MD Primary Care Provider, Attend ing Provider Active Team Status: Inactive Member Role Status Dates Dr. Price Benitez MD Primary Care Provider Active Dr. Ghassan Win MD Attending Provider Active Source Comments (unrecognize d section and content) In the event this informatio n is protected by the Federal Confidentiality of Alcohol and Drug Abuse Patient Records regulations: The Federal rules restrict any use of the information to criminally investigate or prosecute any alcohol or drug abuse patient.[facility] event this information is protected by the Federal Confidentiality of Alcohol and Drug Abuse Patient Records regulations: The Federal rules restrict any use of the information to criminally investigate or prosecute any alcohol or drug abuse patient.[facility] Reason for Visit (unrecogniz ed section and content) Reason Comments PT Eval Specialty Diagnoses / Procedures Referred By Contac t Referred To Contact Physical Therapy / PHYSICAL THERAPY Diagnoses Injury of left rotator cuff left rotator cuff injury left shoulder impingement Procedures NEW RS PT ORTH Price [place] , [place] Tim Pineda, PT [address] [place] [address] Referral ID Status Reason Start Date Expiration Date V isits Requested Visits Authorized [id number] Authorized 02/14/2022 02/13/2023 99 99 Reason Comments Physical Therapy (unrecognized sect ion and content) No Status Records FoundNo Status Records Found INFORMATION SOURCE (unrecogn ized section and content) DATE CREATED AUTHOR 11/27/2022 [facility] DATE CREATED AUTHOR AUTHOR'S ORGANIZ ATION 04/19/2024 [facility] FOR RECORDS PERTAINING TO PATIENTS WHO ARE OR HAVE BEEN ENROLLED IN A CHEMICAL DEPENDENCY/SUBSTANCEABUSE PROGRAM, SOME INFORMATION MAY BE OMITTED. This clinical summary was aggregated from multiple sources. Caution should be exercised in using it in the provision of clinical care. This summary normalizes information from multiple sources, and as a consequence, information in this document may materially change the coding, format and clinical context of patient data. In addition, data may be omitted in some cases. CLINICAL DECISIONS SHOULD BE BASED ON THE PRIMARY CLINICAL RECORDS. [facility]. provides no warranty or guarantee of the accuracy or completeness of information in this document.
[2024-10-09 10:01] LABS: Hematocrit 42.9 % (40-54); Hemoglobin 14.2 g/dL (13.0-16.5); Immature Granulocytes Count 0.020 X10^3/uL (0.0-0.0); Mean Corp Hgb Conc 33.1 g/dL (32-36); Mean Corpuscular Volume 94.9 fL (80-94); Mean Platelet Vol. 9.8 fl (6.2-12.0); NRBC Flagged by Analyzer 0 % (0-5); Platelet Count 193 K/mm3 (150-450); RBC Distribution Width CV 13.1 % (11.6-14.6); RBC Distribution Width SD 45.6 fl (35.1-43.9); Red Blood Count 4.52 M/mm3 (4.6-6.2); White Blood Count 6.8 K/mm3 (4.4-11.0)
[2024-10-09 10:07] LABS: Color, Urine Yellow (Yellow); Glucose, Dipstick Normal (Normal); Ketone-Dipstick Negative (Negative); Leukocyte Esterase-Dipstick Negative /ul (Negative); Nitrite-Dipstick Negative (Negative); Occult Blood-Urine Negative /ul (Negative); Protein-Dipstick Negative (Negative); Specific Gravity, Urine 1.010 (1.002-1.030); Urine Bilirubin Dipstick Negative (Negative)
[2024-10-09 10:30] LABS: AST(SGOT) 23 U/L (<=37); Alanine Aminotransfer ALT/SGPT 27 U/L (<=46); Albumin, Serum 4.4 g/dL (3.4-4.8); Alkaline Phosphatase 63 U/L (40-129); Anion Gap 12 (5-15); BUN 15 mg/dL (4-19); BUN/Creat Ratio 16.1 RATIO (10-20); Calcium,Total 9.5 mg/dL (7.6-11.0); Carbon Dioxide 26.1 mmol/L (21.0-32.0); Chloride 102 mmol/L (98-108); Cholesterol 134 mg/dL (<=200); Globulin 2.8 g/dL (2.2-4.2); Glucose 105 mg/dL (70-99); Low Density Lipoprotein Calc. 70 mg/dL; Potassium 4.5 mmol/L (3.3-5.1); Triglycerides 82 mg/dL; Very Low Density Lipoprotein 16 mg/dL (5-40); cholesterol:hdl ratio screen 2.82
== END | disposition home or self-care (01) ==
LOC: MTLAB 08:31
PROVIDERS: PCP Family Medicine; Referring Provider Family Medicine; Visit Provider Family Medicine
DX: E78.5 Hyperlipidemia, unspecified (principal); I10 Essential (primary) hypertension; M25.551 Pain in right hip; R73.02 Impaired glucose tolerance (oral); M25.552 Pain in left hip
CPT/HCPCS: 36415; 73521; 80053; 80061; 81001; 83036; 85025

== ENCOUNTER → 2025-01-28 | Outpatient (CLI) | payer MEDICARE, SELFPAY ==
[2025-01-28 12:38] LABS: PSA,Total - Annual Screen 1.21 ng/mL (0.02-4.00)
== END | disposition home or self-care (01) ==
LOC: MTLAB 10:06
PROVIDERS: PCP Family Medicine
DX: Z12.5 Encounter for screening for malignant neoplasm of prostate (principal)
CPT/HCPCS: 36415; 84153; G0103